=== PATIENT | female | born 1940 | race Caucasian/White ===

== ENCOUNTER 2016-12-01 14:33 | Observation (INO) ==
--- NOTE | 2016-12-01 16:07 | Emergency Department Note ---
START Narrative - START START: I examined this patient and my medical decision-making was reviewed with the DIRECTOR OF FIELD COORDINATION/PA/Advanced Practice Nurse/Resident Physician. I agree with the documented findings, disposition and treatment plan as described except to the extent set forth below. The patient does have dizziness which is a lightheadedness sensation and the dizziness is worse when she stands up. She also does have a ache sensation in her head. No head trauma. She denies any localized numbness or weakness of the extremities, slurred speech, facial droop or confusion. Patient does have testing pending including troponin because her EKG does show new T-wave inversion laterally in leads 1 and aVL concerning for ischemia. The patient will be admitted. I did inquire about alcohol and she does drink 2-3 drinks per day which are doubles whiskey and 7-Up. This can be further evaluated as an inpatient. [id number] I did speak with the hospitalist who accepts the patient for admission. She does request a head CT and that test is ordered. [id number]
[2016-12-01 16:17] LABS: Bilirubin,Urine Negative (Negative); Blood,Urine Negative (Negative); Clarity,Urine Clear (Clear); Color,Urine Yellow (Yellow); Glucose,Urine (UA) Normal (Normal); Ketones,Urine 15 mg/dL (Negative); Leukocyte Esterase,Urine Trace (Negative); Nitrite,Urine Negative (Negative); PH,Urine 6.5 pH Units (5.0-8.0); Protein,Urine Negative (Neg-Trace); Specific Gravity,Urine 1.014 (1.010-1.025); Urobilinogen,Urine Normal (Normal)
[2016-12-01 16:20] LABS: Bacteria,Urine None Seen per hpf (None-Few); Hyaline Casts,Urine None Seen per lpf (None-Few); RBC,Urine 0-3 per hpf (0-3); Squamous Epithelial Cell,Urine Moderate per lpf (None-Few)
[2016-12-01 16:23] LABS: Basophils % 0.7 %; Eosinophils # 0.2 K/mcL (0.0-0.6); Eosinophils % 2.7 %; Hematocrit 43.6 % (35.3-44.9); Hemoglobin 14.5 g/dL (11.5-15.4); Immature Granulocytes % 0.3 % (0-4); Lymphocytes # 1.1 K/mcL (0.6-4.6); Lymphocytes % 17.6 %; Mean Corpuscular HGB Conc 33.3 g/dL (31.6-35.5); Mean Corpuscular Hemoglobin 31.5 pg (28.0-33.3); Mean Corpuscular Volume 94.8 fL (83.0-100.0); Mean Platelet Volume 9.2 fL (9.4-12.4); Monocytes # 0.6 K/mcL (0.0-1.3); Monocytes % 10.1 %; Neutrophils # 4.1 K/mcL (1.6-8.9); Platelet Count 237 K/mcL (140-400); Red Cell Distribution Width 12.3 % (11.5-14.5); Segmented Neutrophils % 68.6 %
[2016-12-01 16:38] LABS: Alanine Aminotransferase 22 Units/L (0-55); Albumin 4.2 g/dL (3.5-5.0); Alkaline Phosphatase 101 Units/L (38-126); Aspartate Amino Transferase 33 Units/L (5-34); BUN/Creatinine Ratio 11 (6-26); Bilirubin,Total 0.7 mg/dL (0.2-1.2); Blood Urea Nitrogen 9 mg/dL (7-20); Calcium 10.1 mg/dL (8.6-10.8); Carbon Dioxide 23 mEq/L (19-29); Chloride 96 mEq/L (98-109); Ethanol < 10 mg/dL (0-10); Globulin 4.2 g/dL (2.4-3.5); Glucose 88 mg/dL (70-99); Osmolality,Calculated 270 (280-300); Potassium 4.7 mEq/L (3.5-4.5); Sodium 131 mEq/L (136-145); Total Protein 8.4 g/dL (6.0-8.3); eGFR For African Americans > 60 (> 60); eGFR For Non-African Americans > 60 (> 60)
[2016-12-01] MEDS ORDERED: 0.9 % Sodium Chloride 500 ML IVC ONE (16:55)
[2016-12-01] MEDS ORDERED: Acetaminophen 325 MG TABLET PO PRN (18:37)
[2016-12-01] MEDS ORDERED: Naloxone 0.4 MG/ML INJ IVP PRN (18:37)
--- NOTE | 2016-12-01 18:53 | Internal Med History&Physical ---
<Mayra Muller - Last Filed: 12/01/16 22:30> Date of Encounter: 12/01/16 Time of Encounter: 18:53 Assessment and Plan (1) Dizziness Current visit: Yes Status: Acute 1 patient had sudden onset of lightheadedness and dizziness today also word searching. No past history of stroke or seizure activity. Denies any numbness or tingling or slurred speech. At this time. Symptoms have resolved. CT of head was negative for any intracranial abnormalities. We will obtain an MRI continue with her checks 2 obtain cardiac echo 3 continuous cardiac monitoring 4. fall Precautions 5 aspirin and statin will check lipid profile 6 carotid Dopplers 7 neuro checks (2) Hyponatremia Current visit: Yes Status: Acute 1 presently sodium is 131. this appears to be chronic with likely related to her alcoholism. She was recently 137 earlier this month however she has been down to 134-132 previously. 2 we will continue with salt tabs 3 monitor intake and output (3) ETOH abuse Current visit: Yes Status: Acute 1 patient does admit to consuming both whiskey and vodka on a daily basis. She states her last drink was 2 days ago. No signs or symptoms of withdrawal at this time. We will start CIWA , we will give banana bag tonight (4) DVT prophylaxis Current visit: Yes Status: Acute [facility] Internal Medicine - H&P: HPI Chief complaint: Dizziness Admitted From: Emergency Dept Plans for Post Hospital Care: Home History of present illness: Ms. 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 According to the patient she has been experiencing light headedness/dizziness which started this afternoon. She denies any vertigo nausea visual changes headaches. She states that dizziness/lightheadedness is worse with position changes. She also noted that this afternoon she was having difficulty recalling words. She denies any slurred speech numbness tingling facial droop or weakness. She also denies any chest pain shortness of breath or abdominal pain. Patient does admit to drinking alcohol. She drinks approximately 2-3 drinks per day double whiskey 7- Up,or vodka and Snapple. Her last drink was on Monday. Denies any tremors falls or seizure activity She presented to the ER with the above complaints. ER lab work revealed some hyponatremia with sodium 131 potassium was 4.7. Troponin was 0.01. Alcohol was less than [address] of head was obtained which was negative for any acute intracranial abnormalities. EKG according to ER concerning for lateral ischemia. Patient was admitted for further workup and evaluation. Presently patient denies any chest pain or shortness of breath. She is alert appropriate following simple commands male nurse 2 through 12 are intact there are no focal deficits equal strength in all 4 extremities. She denies any lightheadedness or dizziness at this time. Lung sounds are clear heart sounds are regular S1 and S2 with no murmurs clicks counts were as noted abdomen soft nontender no pedal edema noted. She essentially normal monitor. She is human unstable with time. I reviewed this case with Dr. Barriga who agrees with plan. Past Med Surg Social Fam HX - Past Medical History Medical history: arthritis, hyperlipidemia, hypertension, malignancy, syncope Psychiatric history: anxiety, depression - Social History Smoking Status: Never smoker Smokeless Tobacco Status: No Alcohol use: occasionally Drug use: none - Family History Father History Unknown: Yes Family Member Ethnicity: Non- Living Status: Age at : 50 Cause of : heart attack Hx Family Cardiac Disorders: Yes Mother Family Member Ethnicity: Non- Living Status: Age at : 91 Cause of : dementia related complications Hx Family Cancer: Yes Hx Family Neurologic Disorders: Yes (dementia) Internal Medicine - H&P: Meds Aspirin [Adult Low Dose Aspirin EC] 81 mg PO DAILY 05/14/15 [History] Loratadine [Claritin] 10 mg PO DAILY 05/14/15 [History] Losartan Potassium [Cozaar] 100 mg PO DAILY 05/14/15 [History] Montelukast [Singulair] 10 mg PO DAILY 05/14/15 [History] Simvastatin [Zocor] 20 mg PO HS 05/14/15 [History] Sodium Chloride 1 gm PO BID 05/14/15 [History] Spironolactone [Aldactone] 25 mg PO DAILY 05/14/15 [History] l Gasseri/B Bifidum/B Longum [[employer] Capsule] 1 each PO DAILY [History] Fluticasone Propionate Nasal [Flonase] 50 mcg NS DAILY #1 bottle 08/21/15 [Rx] Pentoxifylline [TRENtal] 400 mg PO BID #60 tablet.er 10/17/16 [Rx] Cyanocobalamin (Vitamin B-12) [Vitamin B-12] 1,000 mcg SL Q2W 11/18/16 [History] Escitalopram [Lexapro] 10 mg PO DAILY 11/18/16 [History] Ascorbic Acid [Vitamin C] 500 mg PO Q48H 12/01/16 [History] Carboxymethylcell/Hypromellose [Genteal Gel Drops] 2 drop OP Q6H PRN 12/01/16 [ History] Metoprolol XL (24 HR) Succ [Toprol XL] 50 mg PO DAILY 12/01/16 [History] Prevagen 1 tab PO DAILY 12/01/16 [History] 3 Allergy/AdvReac Type Severity Reaction Status Date / Time enalapril Allergy Cough Verified 12/01/16 14:41 codeine AdvReac See Verified 12/01/16 14:41 Comments All Systems PM: A 10-system review of systems was performed and is negative for pertinent findings except as documented above in the HPI. - Constitutional Constitutional: no chills, no fever(s), no night sweats - EENT Eyes: no change in vision, no discharge, no pain, no photophobia Nose, mouth and throat: no dysphagia, no nasal discharge, no neck pain, no sore throat - Cardiovascular Cardiovascular ROS IM: lightheadedness, no chest pain, no diaphoresis, no dyspnea, no palpitations, no syncope - Respiratory Respiratory: no cough, no dyspnea, no wheezing, no excessive phlegm production - Gastrointestinal Gastrointestinal: no abdominal pain, no diarrhea, no hematemesis, no hematochezia, no melena, no nausea, no vomiting - Genitourinary Genitourinary: no change in urinary stream, no dysuria, no flank pain, no hematuria - Musculoskeletal Musculoskeletal ROS IM: no numbness, no tingling - Integumentary Integumentary IM: no rash, no unusual bruising - Neurological Neurological ROS: no confusion, no convulsions, no focal weakness, no numbness, no tingling, no tremor(s) - Hematologic/Lymphatic Hematologic/Lymphatic: no easy bruising - Constitutional Vitals: Temp Pulse Resp BP Pulse Ox 97.9 F 67 17 173/87 98 12/01/16 14:41 12/01/16 17:00 12/01/16 18:04 12/01/16 18:04 12/01/16 17:00 General appearance: Present: A&O X 3, answers questions appropriately - Head Head exam: Present: atraumatic, normocephalic - Eye Eye exam: Present: PERRL, conjuntiva pink, sclera anicteric Pupils: Present: PERRL - Neck Neck exam general surgery: Present: supple, trachea midline. Absent: lymphadenopathy - Respiratory Respiratory exam: Present: CTAB. Absent: accessory muscle use, rales, rhonchi, wheezes - Cardiovascular Cardiovascular exam: Present: RRR, +S1, +S2. Absent: diastolic murmur, gallop, rubs, systolic murmur - GI/Abdominal GI/Abdominal exam: Present: normal bowel sounds, soft, no peritoneal signs. Absent: distended, tenderness - Extremities Exam Extremities exam: Present: warm, radial pulses palpable and symmetrical. Absent : calf tenderness, cyanotic, pedal edema - Neurological Exam Neurological exam: Present: CN II-XII intact, oriented X3, no focal deficits. Absent: pronater drift, facial droop, speech deficit - Skin Skin exam: Present: dry, intact Internal Med - H&P Results - Labs CBC & Chem 7: 12/01/16 16:17 12/01/16 16:17 - EKG Data EKG shows normal: sinus rhythm Rate: normal - EKG Data Prior EKG available for review: yes When compared to previous EKG: there is no significant change EKG comments: 12/01/16 22:21 IV the EKG with Dr. Barriga <S[place] San - Last Filed: 12/02/16 00:55> Date of Encounter: 12/02/16 Internal Medicine - H&P: HPI History of present illness: Ms. Ridley is a 76 year old female All Systems PM: A 10-system review of systems was performed and is negative for pertinent findings except as documented above in the HPI. - Constitutional Vitals: Temp Pulse Resp BP Pulse Ox 98.4 F 56 18 136/79 96 12/01/16 22:46 12/01/16 22:46 12/01/16 22:46 12/01/16 22:46 12/01/16 22:46 Internal Med - H&P Results - Labs CBC & Chem 7: 12/01/16 16:17 12/01/16 16:17 Labs: Cardiac Enzymes 12/01/16 Range/Units 22:01 Troponin I 0.00 (0-0.03) ng/mL - Impressions ITS Impressions Brain MRI 12/01/16 20:26 IMPRESSION: Volume loss with chronic white matter microvascular ischemic changes. D/ / Foster Flores MD / Foster Flores MD Interpreting Provider: Foster Flores MD - Attending Attestation I examined this patient and my medical decision-making was reviewed with the MEAT STUFFER. I agree with the documented findings, disposition and treatment plan as described except to the extent set forth below. Patient is a 76-year-old female with past medical history of hyperlipidemia, hypertension, anxiety, depression, squamous cell carcinoma of right inguinal lymph node, chronic hyponatremia, MARY, arthritis and history of alcohol abuse. Patient presents to the ED with complaints of dizziness and lightheadedness. Symptoms are worse with position changes. There is some concern earlier today about patient having some dysarthria. Patient denies slurred speech or numbness or tingling. She denies facial droop or focal weakness. She denies chest pain or shortness of breath or palpitations. Patient states she drinks 2- 3 drinks daily and her last drink was about 2 days ago. She does complain of frequent falls. Initial workup in the ED is negative. She has no other acute complaints at this time. Patient will need workup for stroke. Heart rate 56, blood pressure 136/79, O2 sat 96% on room air. Heart S1-S2 positive. Lungs bilateral good air entry no wheeze or crackle. Abdomen soft nontender. Extremities all pulses strong regular no edema. Neurological patient is awake and alert, Not in any distress, cranial nerves intact, no obvious focal neurological deficits.
--- NOTE | 2016-12-01 19:18 | Emergency Department Note ---
Disposition Clinical Impression: Dizziness, ECG abnormality, Hyponatremia Disposition: Admitted As Inpatient Condition: Fair General Adult HPI - General Chief complaint: ED Dizziness Stated complaint: Dizzy Time Seen by Provider: 12/01/16 15:18 Source: patient Limitations: no limitations Nursing Notes Reviewed: Yes Vital Signs Reviewed: Yes - History of Present Illness HPI Narrative: The patient does have dizziness which is a lightheadedness sensation and the dizziness & is worse when she stands up. She also does have a ache sensation in her head. No head trauma. She denies any localized numbness or weakness of the extremities, slurred speech, facial droop or confusion. No chest pain or shortness of breath or sweating. She has had the dizziness in the past. She specifically denies any vertigo. Social history: Drinks between 4 and 6 alcoholic shots per day which are generally whiskey and 7-Up Pain Scale: 0 - Related Data Home Medications Medication Instructions Recorded Confirmed Aspirin [Adult Low Dose Aspirin EC] 81 mg PO DAILY 05/14/15 12/01/16 Loratadine [Claritin] 10 mg PO DAILY 05/14/15 12/01/16 Losartan Potassium [Cozaar] 100 mg PO DAILY 05/14/15 12/01/16 Montelukast [Singulair] 10 mg PO DAILY 05/14/15 12/01/16 Simvastatin [Zocor] 20 mg PO HS 05/14/15 12/01/16 Sodium Chloride 1 gm PO BID 05/14/15 12/01/16 Spironolactone [Aldactone] 25 mg PO DAILY 05/14/15 12/01/16 l Gasseri/B Bifidum/B Longum 1 each PO DAILY 05/14/15 12/01/16 [Beyond Verbal Health Capsule] Cyanocobalamin (Vitamin B-12) 1,000 mcg SL Q2W 11/18/16 12/01/16 [Vitamin B-12] Escitalopram [Lexapro] 10 mg PO DAILY 11/18/16 12/01/16 Ascorbic Acid [Vitamin C] 500 mg PO Q48H 12/01/16 12/01/16 Carboxymethylcell/Hypromellose 2 drop OP Q6H PRN 12/01/16 12/01/16 [Genteal Gel Drops] Metoprolol XL (24 HR) Succ [Toprol 50 mg PO DAILY 12/01/16 12/01/16 XL] Prevagen 1 tab PO DAILY 12/01/16 12/01/16 Previous Rx's Medication Instructions Recorded Fluticasone Propionate Nasal 50 mcg NS DAILY #1 bottle 08/21/15 [Flonase] Pentoxifylline [TRENtal] 400 mg PO BID #60 tablet.er 10/17/16 Allergies Allergy/AdvReac Type Severity Reaction Status Date / Time enalapril Allergy Cough Verified 12/01/16 14:41 codeine AdvReac See Verified 12/01/16 14:41 Comments Review of Systems: No chest pain or shortness of breath or sweating Past Medical History - Past Medical History Medical history: Reports: arthritis, hyperlipidemia, hypertension, malignancy, syncope Psychiatric history: Reports: anxiety, depression 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 EYES: PERRL, EOMI, no scleral icterus NOSE: The nose is normal in appearance without rhinorrhea NECK: Supple without rigidity, no JACKIE RESP: Normal chest excursion with respiration; breath sounds clear and equal bilaterally; no wheezes, rhonchi, or rales CARD: Regular rhythm, without murmurs, rub or gallop ABD: Non-distended; non-tender, soft, without rigidity, rebound or guarding SKIN: Normal for age and race; warm and dry; no apparent lesions, no rash NEUROLOGICAL: Patient is alert and oriented times three. Cranial nerves III- XII are intact. Sensory and motor functions are intact. Strength is 5/5 for flexion and extension in all 4 extremities. Finger to nose testing is equal and normal bilaterally. - General Limitations: no limitations General appearance: alert Course Vital Signs Temperature 97.9 F 12/01/16 14:41 Pulse Rate 72 12/01/16 14:41 Respiratory Rate 20 12/01/16 14:41 Blood Pressure 163/78 12/01/16 14:41 O2 Sat by Pulse Oximetry 97 12/01/16 14:41 Temperature 98.3 F 12/01/16 19:08 Pulse Rate 72 12/01/16 19:08 Respiratory Rate 14 12/01/16 19:08 Blood Pressure 164/71 12/01/16 19:08 O2 Sat by Pulse Oximetry 97 12/01/16 19:08 Oxygen Delivery Oxygen Delivery Room Air Medical Decision Making - MDM Narrative Medical decision making narrative: Patient does have testing pending including troponin because her EKG does show new T-wave inversion laterally in leads 1 and aVL concerning for ischemia. The patient will be admitted. I did inquire about alcohol and she does drink 2-3 drinks per day which are doubles whiskey and 7-Up. This can be further evaluated as an inpatient. The patient does have concerning new EKG changes and that she does not have any chest pain is EKG changes concerning for lateral ischemia are new compared to previous EKG the patient will be admitted to the hospital. I did speak to the hospitalist accepts her for admission. Hospitalist does recommend getting a head CT and I did write for that test and did review the results came back negative. Patient has not had any head trauma. Does not use anticoagulation. - Lab Data Result diagrams: 12/01/16 16:17 12/01/16 16:17 Lab Results 12/01/16 12/01/16 12/01/16 Range/Units 16:03 16:17 16:17 WBC 6.0 (4.3-11.1) K/mcL RBC 4.60 (3.82-4.97) M/mcL Hgb 14.5 (11.5-15.4) g/dL Hct 43.6 (35.3-44.9) % MCV 94.8 (83.0-100.0) fL MCH 31.5 (28.0-33.3) pg MCHC 33.3 (31.6-35.5) g/dL RDW 12.3 (11.5-14.5) % Plt Count 237 (140-400) K/mcL MPV 9.2 L (9.4-12.4) fL Immature Gran % 0.3 (0-4) % Seg Neutrophils % 68.6 % Lymphocytes % 17.6 % Monocytes % 10.1 % Eosinophils % 2.7 % Basophils % 0.7 % Neutrophils # 4.1 (1.6-8.9) K/mcL Lymphocytes # 1.1 (0.6-4.6) K/mcL Monocytes # 0.6 (0.0-1.3) K/mcL Eosinophils # 0.2 (0.0-0.6) K/mcL Basophils # 0.0 (0.0-0.2) K/mcL Sodium 131 L (136-145) mEq/L Potassium 4.7 H (3.5-4.5) mEq/L Chloride 96 L (98-109) mEq/L Carbon Dioxide 23 (19-29) mEq/L BUN 9 (7-20) mg/dL Creatinine 0.82 (0.57-1.11) mg/dL Est GFR ( Amer) > 60 (> 60) Est GFR (Non-Af Amer) > 60 (> 60) BUN/Creatinine Ratio 11 (6-26) Glucose 88 (70-99) mg/dL Calculated Osmolality 270 L (280-300) Calcium 10.1 (8.6-10.8) mg/dL Total Bilirubin 0.7 (0.2-1.2) mg/dL AST 33 (5-34) Units/L ALT 22 (0-55) Units/L Alkaline Phosphatase 101 (38-126) Units/L Troponin I (0-0.03) ng/mL Serum Total Protein 8.4 H (6.0-8.3) g/dL Albumin 4.2 (3.5-5.0) g/dL Globulin 4.2 H (2.4-3.5) g/dL Albumin/Globulin Ratio 1.0 L (1.1-2.2) Urine Color Yellow (Yellow) Urine Clarity Clear (Clear) Urine pH 6.5 (5.0-8.0) pH Units Ur Specific [place] 1.014 (1.010-1.025) Urine Protein Negative (Neg-Trace) mg/dL Urine Glucose (UA) Normal (Normal) mg/dL Urine Ketones 15 H (Negative) mg/dL Urine Blood Negative (Negative) Urine Nitrite Negative (Negative) Urine Bilirubin Negative (Negative) Urine Urobilinogen Normal (Normal) mg/dL Ur Leukocyte Esterase Trace H (Negative) Urine Microscopic RBC 0-3 (0-3) per hpf Urine Microscopic WBC 5-15 H (0-3) per hpf Ur Squamous Epith Cells Moderate H (None-Few) per lpf Urine Bacteria None Seen (None-Few) per hpf Hyaline Casts None Seen (None-Few) per lpf Ur Culture Indicated? YES A (NO) Ethyl Alcohol < 10 (0-10) mg/dL 12/01/16 Range/Units 16:17 WBC (4.3-11.1) K/mcL RBC (3.82-4.97) M/mcL Hgb (11.5-15.4) g/dL Hct (35.3-44.9) % MCV (83.0-100.0) fL MCH (28.0-33.3) pg MCHC (31.6-35.5) g/dL RDW (11.5-14.5) % Plt Count (140-400) K/mcL MPV (9.4-12.4) fL Immature Gran % (0-4) % Seg Neutrophils % % Lymphocytes % % Monocytes % % Eosinophils % % Basophils % % Neutrophils # (1.6-8.9) K/mcL Lymphocytes # (0.6-4.6) K/mcL Monocytes # (0.0-1.3) K/mcL Eosinophils # (0.0-0.6) K/mcL Basophils # (0.0-0.2) K/mcL Sodium (136-145) mEq/L Potassium (3.5-4.5) mEq/L Chloride (98-109) mEq/L Carbon Dioxide (19-29) mEq/L BUN (7-20) mg/dL Creatinine (0.57-1.11) mg/dL Est GFR ( Amer) (> 60) Est GFR (Non-Af Amer) (> 60) BUN/Creatinine Ratio (6-26) Glucose (70-99) mg/dL Calculated Osmolality (280-300) Calcium (8.6-10.8) mg/dL Total Bilirubin (0.2-1.2) mg/dL AST (5-34) Units/L ALT (0-55) Units/L Alkaline Phosphatase (38-126) Units/L Troponin I 0.01 (0-0.03) ng/mL Serum Total Protein (6.0-8.3) g/dL Albumin (3.5-5.0) g/dL Globulin (2.4-3.5) g/dL Albumin/Globulin Ratio (1.1-2.2) Urine Color (Yellow) Urine Clarity (Clear) Urine pH (5.0-8.0) pH Units Ur Specific [place] (1.010-1.025) Urine Protein (Neg-Trace) mg/dL Urine Glucose (UA) (Normal) mg/dL Urine Ketones (Negative) mg/dL Urine Blood (Negative) Urine Nitrite (Negative) Urine Bilirubin (Negative) Urine Urobilinogen (Normal) mg/dL Ur Leukocyte Esterase (Negative) Urine Microscopic RBC (0-3) per hpf Urine Microscopic WBC (0-3) per hpf Ur Squamous Epith Cells (None-Few) per lpf Urine Bacteria (None-Few) per hpf Hyaline Casts (None-Few) per lpf Ur Culture Indicated? (NO) Ethyl Alcohol (0-10) mg/dL
[2016-12-01] MEDS ORDERED: *HR* LORazepam 2 MG/ML VIAL IVP PRN ×3 (20:29)
[2016-12-01] MEDS: Aspirin 325 MG TABLET PO SCH (23:14)
[2016-12-02 04:34] LABS: Basophils % 0.9 %; Eosinophils # 0.1 K/mcL (0.0-0.6); Eosinophils % 3.3 %; Hematocrit 36.1 % (35.3-44.9); Immature Granulocytes % 0.2 % (0-4); Lymphocytes % 22.4 %; Mean Corpuscular HGB Conc 34.9 g/dL (31.6-35.5); Mean Corpuscular Volume 94.5 fL (83.0-100.0); Mean Platelet Volume 9.5 fL (9.4-12.4); Monocytes # 0.6 K/mcL (0.0-1.3); Monocytes % 14.7 %; Neutrophils # 2.5 K/mcL (1.6-8.9); Platelet Count 187 K/mcL (140-400); Red Blood Count 3.82 M/mcL (3.82-4.97); Red Cell Distribution Width 12.7 % (11.5-14.5); Segmented Neutrophils % 58.5 %
[2016-12-02 04:37] LABS: Hemoglobin 12.6 g/dL (11.5-15.4)
[2016-12-02 04:53] LABS: BUN/Creatinine Ratio 13 (6-26); Blood Urea Nitrogen 10 mg/dL (7-20); Carbon Dioxide 23 mEq/L (19-29); Chloride 102 mEq/L (98-109); Chol/HDL Ratio 2.8 (0-4.9); Cholesterol 163 mg/dL (< 200); Glucose 94 mg/dL (70-99); HDL Cholesterol 59 mg/dL (40-59); LDL Cholesterol,Calculated 90 mg/dL (0-99); Magnesium 1.7 mg/dL (1.6-2.6); Osmolality,Calculated 275 (280-300); Potassium 3.8 mEq/L (3.5-4.5); Sodium 133 mEq/L (136-145); Triglycerides 68 mg/dL (< 150); eGFR For African Americans > 60 (> 60); eGFR For Non-African Americans > 60 (> 60)
[2016-12-02] MEDS: *HR* Enoxaparin 40 MG/0.4 ML SYRINGE SQ SCH (05:47)
[2016-12-02] MEDS: Aspirin 325 MG TABLET PO SCH (09:24)
[2016-12-02] MEDS: Metoprolol XL (24 HR) Succ 50 MG TAB.ER.24H PO SCH (09:25)
[2016-12-02] MEDS: Loratadine 10 MG TABLET PO SCH (09:25)
[2016-12-02] MEDS: Aspirin Enteric Coated 81 MG Tablet PO SCH (09:26)
--- NOTE | 2016-12-02 17:57 | Carotid Imaging Report ---
Carotid Duplex Patient Name:Kalani Ridley Order Number:[id number] Procedure Date:12/02/2016 Date:1940ge:76 yrs Gender:Female Lt BP:135 / 74 mmHg Rt.BP:146 / 61 mmHgHeart Rate: Location:[facility] Room #: 3B41 Director Education:Caprice Doe RDCS, ANGIE Referring MD:Mayra Muller, JAR FILLER Reading MD:Jose Carlos Mahajan MD , FACS Primary Indications:Lightheadedness Risk Factors Yes/No Hypertension Yes Diabetes No Hypercholesterolemia Yes Hx of TIA No Hx of CVA No Impressions: Findings: Bilateral carotid systems essentially normal. Recommendations: After imaging the patient returned to their room. Test completed on 12/02/2016 at 9:14:31 am. Critical findings reported to Note in EMR note in emr by Caprice Doe RDCS, ANGIE. Findings Carotid Duplex: Right: There is nonstenotic plaque in the right proximal common carotid artery. There is smooth heterogeneous plaque. There is nonstenotic plaque in the right bifurcation. There is irregular, heterogeneous calcified plaque. There is nonstenotic plaque in the right eca. There is irregular heterogeneous plaque. There is antegrade spectral Doppler flow patterns in the right vertebral artery. Left: There is antegrade spectral Doppler flow patterns in the left vertebral artery. Carotid Results Right PSV EDV Assessment Proximal CCA 74 9 Non Stenotic Plaque Mid CCA 60 12 Normal Distal CCA 63 11 Normal Bifurcation 65 12 Non Stenotic Plaque Proximal ICA 54 11 Normal Mid ICA 72 17 Normal Distal ICA 72 17 Normal ECA 52 Non Stenotic Plaque Vertebral Artery 67 8 Antegrade Flow Left PSV EDV Assessment Proximal CCA 78 12 Normal Mid CCA 61 10 Normal Distal CCA 59 12 Normal Bifurcation 47 12 Normal Proximal ICA 36 12 Normal Mid ICA 63 13 Normal Distal ICA 54 13 Normal ECA 43 Normal Vertebral Artery 72 16 Antegrade Flow Ratio's Right ICA/CCA Ratio: 1.20 ICA/CCA Values: 72/60 Left ICA/CCA Ratio: 1.03 ICA/CCA Values: 63/61 Updated by Jose Carlos Mahajan MD, FACS on 12/02/2016 5:51:59 PM Jose Carlos Mahajan MD electronically signed on 12/02/2016 5:52:22 PM with status of Final
[2016-12-02] MEDS ORDERED: Thiamine (B-1) 100 MG, Folic Acid 1 MG, MVI, adult with vitamin K 10 ML in 0.9 % Sodi... IVPB SCH (18:00)
--- NOTE | 2016-12-02 18:38 | Internal Med Progress Note ---
Date of Encounter: 12/02/16 Time of Encounter: 13:30 - Assessment and plan (1) Dizziness Current Visit: Yes Status: Acute Assessment and plan: Patient reports dizziness she will Yesterday. She reports history of near syncope yesterday and called the squad. She states that she is feeling better. Echocardiogram results are still pending. Check carotids done in June, that showed 40-59% stenosis of left ICA, right nonstenotic plaque in ICA. MRI and head CT are both negative. Orthostatics are ordered and pending. Dizziness could be multifactorial including alcohol intake, hyponatremia, and mild dehydration. We will continue to monitor patient will most likely go home in the morning. (2) Hyponatremia Current Visit: Yes Status: Acute Assessment and plan: Hyponatremia is improving. 133 today. Continue sodium supplementation and reevaluate in the morning. (3) DVT prophylaxis Current Visit: Yes Status: Acute Assessment and plan: Lovenox subcutaneous. (4) ETOH abuse Current Visit: Yes Status: Acute Assessment and plan: Per patient, she consumes both with skin vodka daily. Last drink was 2 days prior to arrival. She has no signs or symptoms of withdrawal, CIWA protocol is ordered. - Time Spent With Patient less than 15 minutes - Subjective Interval history: Patient was seen and assessed at 1330. She is sitting up in bed eating lunch, friend at bedside. Patient states that she feels better. Patient agrees to stay overnight for continued monitoring on the monitor and wait for echocardiogram results. All other testing appears to be normal. We will evaluate, patient will most likely go home in the morning. - Constitutional Vitals: Temp Pulse Resp BP Pulse Ox 98.3 F 61 16 117/74 97 12/02/16 15:36 12/02/16 15:36 12/02/16 15:36 12/02/16 15:36 12/02/16 15:36 General appearance: Present: A&O X 3, pleasant, no acute distress, answers questions appropriately - Head Head exam: Present: atraumatic, normal inspection, normocephalic - Eye Eye exam: Present: conjuntiva pink, sclera anicteric - Neck Neck exam general surgery: Present: supple, trachea midline. Absent: lymphadenopathy, tenderness - Respiratory Respiratory exam: Present: CTAB. Absent: accessory muscle use, rales, rhonchi, wheezes - Cardiovascular Cardiovascular exam: Present: RRR, +S1, +S2. Absent: diastolic murmur, gallop, rubs, systolic murmur - GI/Abdominal GI/Abdominal exam: Present: normal bowel sounds, soft, no peritoneal signs. Absent: distended, hepatomegaly, tenderness - Extremities Exam Extremities exam: Present: normal inspection, warm, radial pulses palpable and symmetrical. Absent: calf tenderness, cyanotic, pedal edema - Neurological Exam Neurological exam: Present: alert, oriented X3, no focal deficits, strengths equal and symetr throughout, pronater drift. Absent: facial droop, speech deficit - Skin Skin exam: Present: dry, intact, normal color, warm. Absent: rash Internal Medicine: Result - Labs CBC & Chem 7: 12/02/16 04:15 12/02/16 04:15 Labs: Short CBC 12/02/16 Range/Units 04:15 WBC 4.3 (4.3-11.1) K/mcL Hgb 12.6 D (11.5-15.4) g/dL Hct 36.1 (35.3-44.9) % Plt Count 187 (140-400) K/mcL Neutrophils # 2.5 (1.6-8.9) K/mcL BMP 12/02/16 04:15 Sodium 133 L Potassium 3.8 Chloride 102 Carbon Dioxide 23 BUN 10 Creatinine 0.78 Glucose 94 Calcium 9.0 Cardiac Enzymes 12/01/16 12/02/16 Range/Units 22:01 04:15 Troponin I 0.00 0.00 (0-0.03) ng/mL - Impressions Impressions Echocardiogram 12/01/16 18:51 Impressions: LVEF 60%. Normal LV chamber size and function. Asymmetric hypertrophy of the basal septum. No LVOT obstruction. Moderate left ventricular diastolic dysfunction. Normal right ventricular structure and function. No evidence of pulmonary hypertension. Left Ventricular Wall Motion: Rest Echo Findings All wall segments showed normal motion. Findings: Study Quality * Technically adequate exam. ECG Findings * Normal sinus rhythm. Left Ventricle * LVEF 60%. * Normal LV chamber size and function. * Asymmetric hypertrophy of the basal septum. * Moderate left ventricular diastolic dysfunction. Right Ventricle * Normal right ventricular structure and function. Left Atrium * Mild to moderately dilated left atrium. Right Atrium * Normal right atrial size. Interatrial Septum * Interatrial septum not well evaluated. Aortic Valve * Trileaflet aortic valve. * Trace aortic regurgitation. * No aortic stenosis. Mitral Valve * Mild mitral annular calcification, posterior. * Trace mitral regurgitation. * No mitral stenosis. Tricuspid Valve * Normal tricuspid valve structure and function. * Trace tricuspid regurgitation. * No evidence of pulmonary hypertension. Pulmonic Valve * Normal pulmonic valve structure and function. * No pulmonic regurgitation. Aorta * Normally sized aortic root. IVC * Normal IVC dimensions and inspiratory collapse. Pulmonary Artery * Normal visualized portions of the main pulmonary artery. Brain MRI 12/01/16 20:26 IMPRESSION: Volume loss with chronic white matter microvascular ischemic changes. D/ / Foster Flores MD / Foster Flores MD Interpreting Provider: Foster Flores MD Consult Discharge Plan - Plan Referrals: Shae Andrade CNP [Advanced Practice Nurse] - 12/07/16 1:00 pm Mariaelena Arevalo DO [Primary Care Provider] -
[2016-12-03 03:22] LABS: Basophils % 0.9 %; Eosinophils # 0.2 K/mcL (0.0-0.6); Eosinophils % 3.5 %; Hematocrit 36.3 % (35.3-44.9); Hemoglobin 12.1 g/dL (11.5-15.4); Immature Granulocytes % 0.2 % (0-4); Lymphocytes % 21.2 %; Mean Corpuscular HGB Conc 33.3 g/dL (31.6-35.5); Mean Corpuscular Hemoglobin 32.3 pg (28.0-33.3); Mean Corpuscular Volume 96.8 fL (83.0-100.0); Mean Platelet Volume 9.5 fL (9.4-12.4); Monocytes # 0.6 K/mcL (0.0-1.3); Monocytes % 12.4 %; Neutrophils # 2.8 K/mcL (1.6-8.9); Platelet Count 187 K/mcL (140-400); Red Blood Count 3.75 M/mcL (3.82-4.97); Segmented Neutrophils % 61.8 %
[2016-12-03 03:28] LABS: BUN/Creatinine Ratio 17 (6-26); Blood Urea Nitrogen 15 mg/dL (7-20); Calcium 8.9 mg/dL (8.6-10.8); Carbon Dioxide 24 mEq/L (19-29); Chloride 107 mEq/L (98-109); Glucose 106 mg/dL (70-99); Osmolality,Calculated 285 (280-300); Potassium 4.1 mEq/L (3.5-4.5); Sodium 137 mEq/L (136-145); eGFR For African Americans > 60 (> 60); eGFR For Non-African Americans > 60 (> 60)
[2016-12-03] MEDS: *HR* Enoxaparin 40 MG/0.4 ML SYRINGE SQ SCH (05:39)
[2016-12-03 07:20] VITALS: BP 155/80
[2016-12-03] MEDS: Aspirin 325 MG TABLET PO SCH (09:08)
--- NOTE | 2016-12-03 09:09 | Discharge Summary ---
Date of Encounter: 12/03/16 Time of Encounter: 08:50 - Discharge Diagnosis (1) Dizziness Priority: Primary Status: Resolved Comments: Patient denies dizziness since original episode at home. Chest x-ray negative, head CT with chronic changes, no acute intracranial abnormalities. Echocardiogram showed LVEF of 60% with moderate LV DD and no evidence of pulmonary hypertension. Carotids were essentially normal bilaterally. Brain MRI with volume loss and chronic ischemic changes. Appears to have been mildly dehydrated on admission, she received fluid bolus in the emergency department and denies problems since. I am encouraged patient to continue hydration at home and change position slowly. Blood pressure has been at goal and steady. She has not had any episodes of tachycardia or hypotension. Chest X-Ray 12/01/16 14:44 IMPRESSION: No acute cardiopulmonary abnormality or significant change since 08/27/2014. D/ / Antonio Lopes MD / Antonio Lopes MD Interpreting Provider: Antonio Lopes MD Head CT 12/01/16 17:06 IMPRESSION: Similar chronic ischemic and senescent changes. No CT evidence for acute intracranial abnormality. D/ / Antwon Rios / Antwon Rios Interpreting Provider: Antwon Rios Echocardiogram 12/01/16 18:51 Impressions: LVEF 60%. Normal LV chamber size and function. Asymmetric hypertrophy of the basal septum. No LVOT obstruction. Moderate left ventricular diastolic dysfunction. Normal right ventricular structure and function. No evidence of pulmonary hypertension. Brain MRI 12/01/16 20:26 IMPRESSION: Volume loss with chronic white matter microvascular ischemic changes. D/ / Foster Flores MD / Foster Flores MD Interpreting Provider: Foster Flores MD (2) Hyponatremia Priority: Secondary Status: Chronic Comments: Resolved. Sodium 137 today. (3) DVT prophylaxis Priority: Secondary Status: Acute (4) ETOH abuse Priority: Secondary Status: Chronic Comments: patient does admit to consuming both whiskey and vodka on a daily basis. No signs or symptoms of withdrawal at this time. [facility] protocol was in place, but she did not require it. - Discharge Medications Home Medications: Aspirin [Adult Low Dose Aspirin EC] 81 mg PO DAILY 05/14/15 [History] Loratadine [Claritin] 10 mg PO DAILY 05/14/15 [History] Losartan Potassium [Cozaar] 100 mg PO DAILY 05/14/15 [History] Montelukast [Singulair] 10 mg PO DAILY 05/14/15 [History] Simvastatin [Zocor] 20 mg PO HS 05/14/15 [History] Sodium Chloride 1 gm PO BID 05/14/15 [History] Spironolactone [Aldactone] 25 mg PO DAILY 05/14/15 [History] l Gasseri/B Bifidum/B Longum [[employer] Capsule] 1 each PO DAILY [History] Fluticasone Propionate Nasal [Flonase] 50 mcg NS DAILY #1 bottle 08/21/15 [Rx] Pentoxifylline [TRENtal] 400 mg PO BID #60 tablet.er 10/17/16 [Rx] Cyanocobalamin (Vitamin B-12) [Vitamin B-12] 1,000 mcg SL Q2W 11/18/16 [History] Escitalopram [Lexapro] 10 mg PO DAILY 11/18/16 [History] Ascorbic Acid [Vitamin C] 500 mg PO Q48H 12/01/16 [History] Carboxymethylcell/Hypromellose [Genteal Gel Drops] 2 drop OP Q6H PRN 12/01/16 [ History] Metoprolol XL (24 HR) Succ [Toprol Xl] 50 mg PO DAILY 12/01/16 [History] Prevagen 1 tab PO DAILY 12/01/16 [History] Allergies/Adverse Reactions: 3 Allergy/AdvReac Type Severity Reaction Status Date / Time enalapril Allergy Cough Verified 12/01/16 14:41 codeine AdvReac See Verified 12/01/16 14:41 Comments Procedures/tests Complete & Pending: Procedures Performed prior 72 hours Category Date Time Status MR head/brain wo con [MR] Routine MRI 12/01/16 20:26 Completed EV carotid duplex imaging BI Routine Y 12/02/16 09:00 Completed EV echocardiogram Routine Y 12/01/16 18:51 Completed Date of admission: 12/01/16 17:08 Primary care physician: Mariaelena Arevalo DO Consults: 12/01/16 19:02 Consult to [employer] [CONS] Routine Reason for SW Consult: reports depression with alcohol use daily Discharging clinician: Caprice Sutherland Anticipated date of discharge: 12/03/16 - Patient Status Disposition: Home, Self-Care Condition: Good Functional capacity at discharge: independent ambulation Overall status at discharge: patient is back to baseline - Discharge Instructions Follow Up With: Shae Andrade CNP [Advanced Practice Nurse] - 12/07/16 1:00 pm Mariaelena Arevalo DO [Primary Care Provider] - Forms: ED Satisfaction Letter Additional Instructions: Follow up with your PCP in the next 7-10 days for a follow up visit. Return to the ER as needed for any other problems or concerns or if your problems return or worsen. Take your medications as directed. Resume your normal activities as tolerated. - Diet and Activity Activity: increase activity as tolerated Diet: advance to your usual diet Hospital course: Ms. Ridley is a 76 year old female with past medical history of squamous cell carcinoma, chronic hyponatremia, hyperlipidemia, hypertension, and alcohol abuse. She presented to the emergency department with complaint of lightheadedness/dizziness which started immediately prior to arrival. She denies any nausea, vomiting, visual changes, headaches, shortness of breath. She reports that the dizziness/ lightheadedness was worse with position changes and noted that she was having difficulty recalling words. She denies any slurred speech, numbness, tingling, facial droop, or weakness. She also denies any chest pain, or abdominal pain. She states that she drinks approximately 2- 3 drinks per day of whiskey or vodka. Her last drink was 3 days ago. She denies any tremors, feeling of anxiety. Lab work revealed a sodium of 131, patient is chronically hyponatremic, and potassium of 4.7. Her troponins were negative, alcohol is less than 10. CT of the head was negative for any acute intracranial abnormalities, MRI was also negative for acute, however the CT and MRI both showed normal, chronic changes. Chest x-ray was negative, echocardiogram showed LVEF of 60% ,asymmetric hypertrophy of the basal septum, moderate LVDD. Carotid Dopplers were essentially normal bilaterally. On arrival, urine showed a trace of leukocyte esterase, no bacteria, culture was indicated, and when completed there were no pathogens isolated. Hyponatremia has been corrected, sodium is 137. Patient takes sodium chloride tablets at home, will continue after discharge. She denies any dizziness today or since the initial incident. Unclear etiology of the dizziness other than potential mild dehydration that has since corrected. She denies headache, blurred vision, neck pain or tenderness, chest pain or shortness of breath, abdominal pain, nausea, vomiting, diarrhea. Physical exam is unremarkable. Her vital signs are stable, blood pressure is at goal, orthostatics were negative. She is not requiring supplemental oxygen to maintain sats greater than 92%. I have made no medication changes. Patient is stable and appropriate for discharge - Time Spent with Patient Total time spent providing and/or coordinating discharge services: Less than 30 minutes - Constitutional Vitals: Temp Pulse Resp BP Pulse Ox 97.7 F 61 15 155/80 98 12/03/16 07:18 12/03/16 07:18 12/03/16 07:18 12/03/16 07:18 12/03/16 07:18 General appearance: Present: A&O X 3, pleasant, no acute distress, answers questions appropriately - Head Head exam: Present: atraumatic, normal inspection, normocephalic - Eye Eye exam: Present: normal appearance, conjuntiva pink, sclera anicteric - Neck Neck exam general surgery: Present: supple, trachea midline. Absent: lymphadenopathy, tenderness - Respiratory Respiratory exam: Present: CTAB. Absent: accessory muscle use, decreased breath sounds, rales, respiratory distress, rhonchi, wheezes - Cardiovascular Cardiovascular exam: Present: RRR, +S1, +S2. Absent: diastolic murmur, gallop, rubs, systolic murmur - GI/Abdominal GI/Abdominal exam: Present: normal bowel sounds, soft, no peritoneal signs. Absent: distended, hepatomegaly, tenderness - Extremities Exam Extremities exam: Present: normal inspection, warm, radial pulses palpable and symmetrical. Absent: calf tenderness, cyanotic, pedal edema, tenderness - Neurological Exam Neurological exam: Present: alert, oriented X3, no focal deficits. Absent: facial droop, speech deficit - Skin Skin exam: Present: dry, intact, normal color, warm. Absent: rash
[2016-12-03] MEDS: Loratadine 10 MG TABLET PO SCH (09:17)
[2016-12-03] MEDS: Aspirin Enteric Coated 81 MG Tablet PO SCH (09:18)
[2016-12-03] MEDS: Metoprolol XL (24 HR) Succ 50 MG TAB.ER.24H PO SCH (09:18)
--- NOTE | 2016-12-04 07:25 | Electrocardiograph Report ---
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
== END 2016-12-03 11:20 | disposition home or self-care (01) ==
LOC: 3BNU 14:33 → EMEROO 14:33 → 3BNU 17:58
PROVIDERS: ADMIT Internal Medicine; ATTEND Registered Nurse

== ENCOUNTER 2018-02-20 13:46 | Inpatient (IN) ==
[2018-02-20] MEDS ORDERED: 0.9 % Sodium Chloride 1,000 ML IVC ONE (13:52)
--- NOTE | 2018-02-20 14:01 | Emergency Department Note ---
Disposition Clinical Impression: New onset atrial fibrillation Chest pain Qualifiers: Chest pain type: unspecified Qualified Code(s): R07.9 - Chest pain, unspecified Disposition: Admitted As Inpatient Condition: Fair Time of Disposition: 16:27 Chest Pain HPI - General Chief Complaint: ED Chest Pain Stated Complaint: CP Time Seen by Provider: 02/20/18 13:51 Source: patient, EMS Limitations: no limitations - History of Present Illness HPI Narrative: Patient presents to the ED with the chief complaint of chest pain. Started this morning when she woke up. Describes it more as a fluttering or palpitation type feeling. Also has some tightness and heaviness but it is across her entire chest wall. Does make her short of breath at times. No fever or chills. Denying any abdominal pain, nausea, vomiting or diarrhea. No rashes or pain or swelling in her legs. States she is otherwise healthy and does not have any medical problems. However, after independent medical record review. 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 Unclear of timing. She is also on a baby aspirin. She is also on spironolactone. Severity scale (1-10): 5 - Related Data Home Medications Medication Instructions Recorded Confirmed Aspirin [Adult Low Dose Aspirin EC] 81 mg PO DAILY 05/14/15 02/01/18 Loratadine [Claritin] 10 mg PO DAILY 05/14/15 02/01/18 Losartan Potassium [Cozaar] 100 mg PO DAILY 05/14/15 02/01/18 Montelukast [Singulair] 10 mg PO DAILY 05/14/15 02/01/18 Simvastatin [Zocor] 20 mg PO HS 05/14/15 02/01/18 Sodium Chloride [Sodium Chloride 1 gm PO BID 05/14/15 02/01/18 Tab] Spironolactone [Aldactone] 25 mg PO DAILY 05/14/15 02/01/18 l Gasseri/B Bifidum/B Longum 1 each PO DAILY 05/14/15 02/01/18 [[employer] Health Capsule] Cyanocobalamin (Vitamin B-12) 1,000 mcg SL Q2W 11/18/16 02/01/18 [Vitamin B-12] Escitalopram [Lexapro] 10 mg PO DAILY 11/18/16 02/01/18 Carboxymethylcell/Hypromellose 2 drop OP Q6H PRN 12/01/16 02/01/18 [Genteal Gel Drops] Metoprolol XL (24 HR) Succ [Toprol 50 mg PO DAILY 12/01/16 02/01/18 Xl] Previous Rx's Medication Instructions Recorded Fluticasone Propionate Nasal 50 mcg NS DAILY #1 bottle 08/21/15 [Flonase] Pentoxifylline [TRENtal] 400 mg PO BID #60 tablet.er 01/22/18 Allergies Allergy/AdvReac Type Severity Reaction Status Date / Time enalapril Allergy Cough Verified 02/20/18 13:54 codeine AdvReac See Verified 02/20/18 13:54 Comments Review of Systems: As reviewed in the HPI. All other systems reviewed are negative or normal. All systems ED: reviewed and negative except as stated. Chest Pain PMH - Past Medical History Medical history: Reports: arthritis, COPD, hyperlipidemia, hypertension, malignancy, syncope Psychiatric history: Reports: anxiety, depression [employer]OR [employer] history: Reports: no [employer]OR [employer] history - Social History Smoking Status: Never smoker Alcohol use: Reports: occasionally Drug use: Reports: none Physical Exam CONSTITUTIONAL: [well appearing, alert and in no acute distress] EYES: [EOMI, clear conjunctiva, PERRLA] HENT: [Normocephalic, atraumatic, moist mucus membranes, normal oropharynx] NECK: [normal inspection, full ROM, trachea midline, no obvious swelling] PULMONARY: [normal lung sounds bilaterally, normal chest rise and fall, no respiratory distress or stridor, no wheezes, no rales, no rhonchi CARDIOVASCULAR: [A. fib with RVR, normal heart sounds, no murmurs, distal extremities are warm and well perfused] GASTROINSTESTINAL: [soft, non-tender, non-rigid, non-distended, no guarding, no rebound, normal bowel sounds] GENITOURINARY/RECTAL: [deferred] NEUROLOGIC: [Alert, oriented x3, normal speech, moves all extremities] EXTREMITIES: [Normal inspection, full ROM, no tenderness, no pedal edema, normal capillary refill] MUSCULOSKELETAL: [no gross deformities, atraumatic] SKIN: [No cyanosis, no diaphoresis, normal color, warm, no rash] PSYCHIATRIC: [normal mood and affect] - General Limitations: no limitations General appearance: alert, in no apparent distress Course - Reevaluation(s) Reevaluation #1: Patient presenting with new onset A. fib with RVR. Is now rate controlled, but has not converted. 10 mg bolus of diltiazem and on a low-dose drip. We will admit to the hospital service for further workup Vital Signs Temperature 99.0 F 02/20/18 13:50 Pulse Rate 133 02/20/18 13:50 Respiratory Rate 14 02/20/18 13:50 Blood Pressure 153/90 02/20/18 13:50 O2 Sat by Pulse Oximetry 99 02/20/18 13:50 Temperature 99.0 F 02/20/18 13:50 Pulse Rate 79 02/20/18 16:06 Respiratory Rate 18 02/20/18 16:06 Blood Pressure 142/66 02/20/18 16:06 O2 Sat by Pulse Oximetry 98 02/20/18 16:06 Oxygen Delivery Oxygen Delivery Room Air Chest Pain - Medical Records Medical records reviewed: Yes I reviewed the patient's medical records. - Lab Data Lab results reviewed: Yes I reviewed the patient's lab results. Result diagrams: 02/20/18 14:25 02/20/18 14:25 Lab Results 02/20/18 02/20/18 02/20/18 Range/Units 14:25 14:25 14:25 WBC 5.3 (4.3-11.1) K/mcL RBC 4.24 (3.82-4.97) M/mcL Hgb 13.3 (11.5-15.4) g/dL Hct 40.1 (35.3-44.9) % MCV 94.6 (83.0-100.0) fL MCH 31.4 (28.0-33.3) pg MCHC 33.2 (31.6-35.5) g/dL RDW 13.4 (11.5-14.5) % Plt Count 197 (140-400) K/mcL MPV 9.7 (9.4-12.4) fL Immature Gran % 0.4 (0-4) % Seg Neutrophils % 74.8 % Lymphocytes % 12.5 % Monocytes % 9.8 % Eosinophils % 1.7 % Basophils % 0.8 % Neutrophils # 4.0 (1.6-8.9) K/mcL Lymphocytes # 0.7 (0.6-4.6) K/mcL Monocytes # 0.5 (0.0-1.3) K/mcL Eosinophils # 0.1 (0.0-0.6) K/mcL Basophils # 0.0 (0.0-0.2) K/mcL PT 11.4 (9.4-12.1) Seconds INR 1.0 APTT 28.1 (26.0-36.0) Seconds Sodium 132 L (136-145) mEq/L Potassium 4.1 (3.5-5.1) mEq/L Chloride 100 (98-107) mEq/L Carbon Dioxide 26 (23-29) mEq/L BUN 8 (8-23) mg/dL Creatinine 0.82 (0.60-1.20) mg/dL Est GFR ( Amer) > 60 (> 60) Est GFR (Non-Af Amer) > 60 (> 60) BUN/Creatinine Ratio 10 (6-26) Glucose 147 H (70-105) mg/dL Calculated Osmolality 275 L (280-300) Calcium 8.9 (8.6-10.3) mg/dL Magnesium 1.6 (1.6-2.6) mg/dL Troponin I < 0.03 (< 0.04) ng/mL TSH 2.274 (0.340-5.600) mcIU/mL Urine Nitrite (Negative) Urine Urobilinogen (Normal) mg/dL Ur Leukocyte Esterase (Negative) Urine Microscopic RBC (0-3) per hpf Urine Microscopic WBC (0-3) per hpf Ur Squamous Epith Cells (None-Few) per lpf Urine Bacteria (None-Few) per hpf Hyaline Casts (None-Few) per lpf Ur Culture Indicated? (NO) 02/20/18 Range/Units 14:52 WBC (4.3-11.1) K/mcL RBC (3.82-4.97) M/mcL Hgb (11.5-15.4) g/dL Hct (35.3-44.9) % MCV (83.0-100.0) fL MCH (28.0-33.3) pg MCHC (31.6-35.5) g/dL RDW (11.5-14.5) % Plt Count (140-400) K/mcL MPV (9.4-12.4) fL Immature Gran % (0-4) % Seg Neutrophils % % Lymphocytes % % Monocytes % % Eosinophils % % Basophils % % Neutrophils # (1.6-8.9) K/mcL Lymphocytes # (0.6-4.6) K/mcL Monocytes # (0.0-1.3) K/mcL Eosinophils # (0.0-0.6) K/mcL Basophils # (0.0-0.2) K/mcL PT (9.4-12.1) Seconds INR APTT (26.0-36.0) Seconds Sodium (136-145) mEq/L Potassium (3.5-5.1) mEq/L Chloride (98-107) mEq/L Carbon Dioxide (23-29) mEq/L BUN (8-23) mg/dL Creatinine (0.60-1.20) mg/dL Est GFR ( Amer) (> 60) Est GFR (Non-Af Amer) (> 60) BUN/Creatinine Ratio (6-26) Glucose (70-105) mg/dL Calculated Osmolality (280-300) Calcium (8.6-10.3) mg/dL Magnesium (1.6-2.6) mg/dL Troponin I (< 0.04) ng/mL TSH (0.340-5.600) mcIU/mL Urine Nitrite Negative (Negative) Urine Urobilinogen Normal (Normal) mg/dL Ur Leukocyte Esterase Trace H (Negative) Urine Microscopic RBC 0-3 (0-3) per hpf Urine Microscopic WBC 0-3 (0-3) per hpf Ur Squamous Epith Cells Few (None-Few) per lpf Urine Bacteria Many H (None-Few) per hpf Hyaline Casts None Seen (None-Few) per lpf Ur Culture Indicated? YES A (NO) - Radiology Data Radiology results reviewed: Yes I reviewed the patient's radiology results. - EKG Data EKG attestation: Yes I reviewed and interpreted this EKG. EKG results narrative: A. fib with RVR, rate 129, normal axis, no acute ischemic changes Critical Care Time Critical Care Time: Yes Total Critical Care Time: 30 Attestation: I personally spent ___30___ minutes devoted to the care of this critically ill patient with new onset A. fib with RVR. This time excludes the time for billable procedures.
--- NOTE | 2018-02-20 14:34 | Emergency Department Note ---
Disposition Clinical Impression: New onset atrial fibrillation, Chest pain Disposition: Admitted As Inpatient Condition: Fair General Adult HPI - General Chief complaint: ED Chest Pain Stated complaint: CP Time Seen by Provider: 02/20/18 13:51 Source: patient, EMS Limitations: no limitations - History of Present Illness Pain Scale: 5 - Related Data Home Medications Medication Instructions Recorded Confirmed Aspirin [Adult Low Dose Aspirin EC] 81 mg PO DAILY 05/14/15 02/01/18 Loratadine [Claritin] 10 mg PO DAILY 05/14/15 02/01/18 Losartan Potassium [Cozaar] 100 mg PO DAILY 05/14/15 02/01/18 Montelukast [Singulair] 10 mg PO DAILY 05/14/15 02/01/18 Simvastatin [Zocor] 20 mg PO HS 05/14/15 02/01/18 Sodium Chloride [Sodium Chloride 1 gm PO BID 05/14/15 02/01/18 Tab] Spironolactone [Aldactone] 25 mg PO DAILY 05/14/15 02/01/18 l Gasseri/B Bifidum/B Longum 1 each PO DAILY 05/14/15 02/01/18 [[employer] Capsule] Cyanocobalamin (Vitamin B-12) 1,000 mcg SL Q2W 11/18/16 02/01/18 [Vitamin B-12] Escitalopram [Lexapro] 10 mg PO DAILY 11/18/16 02/01/18 Carboxymethylcell/Hypromellose 2 drop OP Q6H PRN 12/01/16 02/01/18 [Genteal Gel Drops] Metoprolol XL (24 HR) Succ [Toprol 50 mg PO DAILY 12/01/16 02/01/18 Xl] Previous Rx's Medication Instructions Recorded Fluticasone Propionate Nasal 50 mcg NS DAILY #1 bottle 08/21/15 [Flonase] Pentoxifylline [TRENtal] 400 mg PO BID #60 tablet.er 01/22/18 Allergies Allergy/AdvReac Type Severity Reaction Status Date / Time enalapril Allergy Cough Verified 02/20/18 13:54 codeine AdvReac See Verified 02/20/18 13:54 Comments Past Medical History - Past Medical History Medical history: Reports: arthritis, COPD, hyperlipidemia, hypertension, malignancy, syncope Psychiatric history: Reports: anxiety, depression FIELDWORK COORDINATOR history: Reports: no FIELDWORK COORDINATOR history - Social History Smoking Status: Never smoker Smokeless Tobacco Status: No Alcohol use: Reports: occasionally Drug use: Reports: none Physical Exam - General Limitations: no limitations General appearance: alert, in no apparent distress Course Vital Signs Temperature 99.0 F 02/20/18 13:50 Pulse Rate 133 02/20/18 13:50 Respiratory Rate 14 02/20/18 13:50 Blood Pressure 153/90 02/20/18 13:50 O2 Sat by Pulse Oximetry 99 02/20/18 13:50 Temperature 99.0 F 02/20/18 13:50 Pulse Rate 79 02/20/18 16:38 Respiratory Rate 14 02/20/18 16:38 Blood Pressure 144/75 02/20/18 16:38 O2 Sat by Pulse Oximetry 98 02/20/18 16:38 Oxygen Delivery Oxygen Delivery Room Air Medical Decision Making - Lab Data Result diagrams: 02/20/18 14:25 02/20/18 14:25 Lab Results 02/20/18 02/20/18 02/20/18 Range/Units 14:25 14:25 14:25 WBC 5.3 (4.3-11.1) K/mcL RBC 4.24 (3.82-4.97) M/mcL Hgb 13.3 (11.5-15.4) g/dL Hct 40.1 (35.3-44.9) % MCV 94.6 (83.0-100.0) fL MCH 31.4 (28.0-33.3) pg MCHC 33.2 (31.6-35.5) g/dL RDW 13.4 (11.5-14.5) % Plt Count 197 (140-400) K/mcL MPV 9.7 (9.4-12.4) fL Immature Gran % 0.4 (0-4) % Seg Neutrophils % 74.8 % Lymphocytes % 12.5 % Monocytes % 9.8 % Eosinophils % 1.7 % Basophils % 0.8 % Neutrophils # 4.0 (1.6-8.9) K/mcL Lymphocytes # 0.7 (0.6-4.6) K/mcL Monocytes # 0.5 (0.0-1.3) K/mcL Eosinophils # 0.1 (0.0-0.6) K/mcL Basophils # 0.0 (0.0-0.2) K/mcL PT 11.4 (9.4-12.1) Seconds INR 1.0 APTT 28.1 (26.0-36.0) Seconds Sodium 132 L (136-145) mEq/L Potassium 4.1 (3.5-5.1) mEq/L Chloride 100 (98-107) mEq/L Carbon Dioxide 26 (23-29) mEq/L BUN 8 (8-23) mg/dL Creatinine 0.82 (0.60-1.20) mg/dL Est GFR ( Amer) > 60 (> 60) Est GFR (Non-Af Amer) > 60 (> 60) BUN/Creatinine Ratio 10 (6-26) Glucose 147 H (70-105) mg/dL Calculated Osmolality 275 L (280-300) Calcium 8.9 (8.6-10.3) mg/dL Magnesium 1.6 (1.6-2.6) mg/dL Troponin I < 0.03 (< 0.04) ng/mL TSH 2.274 (0.340-5.600) mcIU/mL Urine Nitrite (Negative) Urine Urobilinogen (Normal) mg/dL Ur Leukocyte Esterase (Negative) Urine Microscopic RBC (0-3) per hpf Urine Microscopic WBC (0-3) per hpf Ur Squamous Epith Cells (None-Few) per lpf Urine Bacteria (None-Few) per hpf Hyaline Casts (None-Few) per lpf Ur Culture Indicated? (NO) 02/20/18 Range/Units 14:52 WBC (4.3-11.1) K/mcL RBC (3.82-4.97) M/mcL Hgb (11.5-15.4) g/dL Hct (35.3-44.9) % MCV (83.0-100.0) fL MCH (28.0-33.3) pg MCHC (31.6-35.5) g/dL RDW (11.5-14.5) % Plt Count (140-400) K/mcL MPV (9.4-12.4) fL Immature Gran % (0-4) % Seg Neutrophils % % Lymphocytes % % Monocytes % % Eosinophils % % Basophils % % Neutrophils # (1.6-8.9) K/mcL Lymphocytes # (0.6-4.6) K/mcL Monocytes # (0.0-1.3) K/mcL Eosinophils # (0.0-0.6) K/mcL Basophils # (0.0-0.2) K/mcL PT (9.4-12.1) Seconds INR APTT (26.0-36.0) Seconds Sodium (136-145) mEq/L Potassium (3.5-5.1) mEq/L Chloride (98-107) mEq/L Carbon Dioxide (23-29) mEq/L BUN (8-23) mg/dL Creatinine (0.60-1.20) mg/dL Est GFR ( Amer) (> 60) Est GFR (Non-Af Amer) (> 60) BUN/Creatinine Ratio (6-26) Glucose (70-105) mg/dL Calculated Osmolality (280-300) Calcium (8.6-10.3) mg/dL Magnesium (1.6-2.6) mg/dL Troponin I (< 0.04) ng/mL TSH (0.340-5.600) mcIU/mL Urine Nitrite Negative (Negative) Urine Urobilinogen Normal (Normal) mg/dL Ur Leukocyte Esterase Trace H (Negative) Urine Microscopic RBC 0-3 (0-3) per hpf Urine Microscopic WBC 0-3 (0-3) per hpf Ur Squamous Epith Cells Few (None-Few) per lpf Urine Bacteria Many H (None-Few) per hpf Hyaline Casts None Seen (None-Few) per lpf Ur Culture Indicated? YES A (NO) Critical Care Time Critical Care Time: Yes Total Critical Care Time: 35 Attestation: Critical care performed: Time is exclusive of separately billable procedures. Time includes: direct patient care, patient reassessment, coordination of patient care, interpretation of data (laboratory data, radiology data, and respiratory data), review of patient's medical records, medical consultation and documentation of patient care. Ar lemons Procedures included in critical care time: Procedures excluded from critical care time: Attestation Statement - Attestation Attestation: I examined this patient and my medical decision-making was reviewed with the [facility] Physician. I agree with the documented findings, disposition and treatment plan as described except to the extent set forth below. Patient resisted ED with a chief complaint of palpitations. Onset this afternoon while she was walking in her house. She has some pressure across her chest as well. She was found to be in A. fib by EMS. She states this is a new diagnosis for her. She denies any history coronary disease or valvular disease. On examination she is in no acute distress. She is tachycardic with an irregularly irregular rhythm. Plan. Cardiac workup. Rate control. Admission. Last heart rate was 101. Patient on Cardizem drip. TSH electrolytes unremarkab le. Calling for admission. Chest X-Ray 02/20/18 13:52 IMPRESSION: No acute pulmonary disease. Calcific atherosclerotic disease aorta. Absent rib posterior right presumably related to prior thoracotomy. D/ / Shayne Heath / Shayne Heath Interpreting Provider: Shayne Heath
[2018-02-20 14:51] LABS: Basophils % 0.8 %; Eosinophils # 0.1 K/mcL (0.0-0.6); Eosinophils % 1.7 %; Hematocrit 40.1 % (35.3-44.9); Hemoglobin 13.3 g/dL (11.5-15.4); Immature Granulocytes % 0.4 % (0-4); Lymphocytes # 0.7 K/mcL (0.6-4.6); Lymphocytes % 12.5 %; Mean Corpuscular HGB Conc 33.2 g/dL (31.6-35.5); Mean Corpuscular Hemoglobin 31.4 pg (28.0-33.3); Mean Corpuscular Volume 94.6 fL (83.0-100.0); Mean Platelet Volume 9.7 fL (9.4-12.4); Monocytes # 0.5 K/mcL (0.0-1.3); Monocytes % 9.8 %; Platelet Count 197 K/mcL (140-400); Red Blood Count 4.24 M/mcL (3.82-4.97); Red Cell Distribution Width 13.4 % (11.5-14.5); Segmented Neutrophils % 74.8 %
[2018-02-20 15:07] LABS: Prothrombin Time 11.4 Seconds (9.4-12.1)
[2018-02-20 15:08] LABS: Bilirubin,Urine Negative (Negative); Blood,Urine Negative (Negative); Clarity,Urine Clear (Clear); Color,Urine Yellow (Yellow); Glucose,Urine (UA) Normal (Normal); Ketones,Urine Negative (Negative); Leukocyte Esterase,Urine Trace (Negative); Nitrite,Urine Negative (Negative); PH,Urine 6.5 pH Units (5.0-8.0); Protein,Urine Negative (Neg-Trace); Specific Gravity,Urine < 1.005 (1.010-1.025); Urobilinogen,Urine Normal (Normal)
[2018-02-20 15:09] LABS: Activated Partial Thrombo Time 28.1 Seconds (26.0-36.0)
[2018-02-20 15:10] LABS: Bacteria,Urine Many per hpf (None-Few); Hyaline Casts,Urine None Seen per lpf (None-Few); RBC,Urine 0-3 per hpf (0-3); Squamous Epithelial Cell,Urine Few per lpf (None-Few); WBC,Urine 0-3 per hpf (0-3)
[2018-02-20 15:13] LABS: BUN/Creatinine Ratio 10 (6-26); Blood Urea Nitrogen 8 mg/dL (8-23); Calcium 8.9 mg/dL (8.6-10.3); Carbon Dioxide 26 mEq/L (23-29); Chloride 100 mEq/L (98-107); Glucose 147 mg/dL (70-105); Magnesium 1.6 mg/dL (1.6-2.6); Osmolality,Calculated 275 (280-300); Potassium 4.1 mEq/L (3.5-5.1); Sodium 132 mEq/L (136-145); Troponin I < 0.03 ng/mL (< 0.04); eGFR For Non-African Americans > 60 (> 60)
[2018-02-20 15:27] LABS: Thyroid Stimulating Hormone 2.274 mcIU/mL (0.340-5.600)
[2018-02-20] MEDS ORDERED: Naloxone 0.4 MG/ML INJ IVP PRN (17:21)
[2018-02-20] MEDS ORDERED: *HR* Enoxaparin 80 MG/0.8 ML SYRINGE SQ SCH (18:29)
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
[2018-02-20] MEDS ORDERED: Acetaminophen 325 MG TABLET PO PRN (23:57)
[2018-02-21 07:14] VITALS: BP 160/71
[2018-02-21] MEDS ORDERED: *HR* Enoxaparin 80 MG/0.8 ML SYRINGE SQ SCH (09:00)
[2018-02-21] MEDS ORDERED: Spironolactone 25 MG TABLET PO SCH (09:00)
[2018-02-21] MEDS ORDERED: Loratadine 10 MG TABLET PO SCH (09:00)
--- NOTE | 2018-02-21 15:56 | Discharge Summary ---
Orders not resulted at time of discharge: Pending orders 02/20/18 14:52 Culture,Urine [RM] Stat Date of Encounter: 02/21/18 Time of Encounter: 15:54 - Discharge Diagnosis (1) PAF (paroxysmal atrial fibrillation) Priority: Primary Status: Acute (2) Chest pain Priority: Primary Status: Acute Qualifiers: Chest pain type: unspecified Qualified Code(s): R07.9 - Chest pain, unspecified (3) HTN (hypertension) Priority: Secondary Status: Chronic Qualifiers: Hypertension type: essential hypertension Qualified Code(s): I10 - Essential (primary) hypertension (4) HLD (hyperlipidemia) Priority: Secondary Status: Chronic Qualifiers: Hyperlipidemia type: unspecified Qualified Code(s): E78.5 - Hyperlipidemia, unspecified Hospital course: HOSPITAL COURSE: The patient is a 77-year-old woman. We admitted her after she had experienced an episode of atrial fibrillation with rapid ventricular rate. She was put on IV Cardizem drip. She converted to normal sinus rhythm in the first 12 hours after the admission. Echocardiogram was done he did not show any significant abnormalities. Her TSH is normal. The patient does not have any symptoms/signs suggesting coronary artery disease. Troponin was checked at admission it was normal. CONDITION AT DISCHARGE: She feels good. Denies chest pain and difficulty breathing. She can ambulate on her own. Skin: Free of rash and discoloration. Respiratory: Normal breath sounds with no crackles and wheezes bilaterally. CV: Heart is regular with no gallop or murmur. GI: Abdomen is flat and soft with no palpable mass or visceromegaly. Neuro exam: There is no focal deficits. Normal speech, swallowing and gait. Telemetry showing normal sinus rhythm. SEE DISCHARGE ORDERS/MEDICATIONS.. She will be on Eliquis. Discharge discussed with: patient, nurse, case management - Time Spent with Patient Total time spent providing and/or coordinating discharge services: Greater than 30 minutes (40 minutes..) - Discharge Medications Prescriptions: Apixaban [Eliquis] 5 mg PO BID #60 tablet Home Medications: Loratadine [Claritin] 10 mg PO DAILY 05/14/15 [History] Losartan Potassium [Cozaar] 100 mg PO BID 05/14/15 [History] Montelukast [Singulair] 10 mg PO DAILY 05/14/15 [History] Simvastatin [Zocor] 20 mg PO HS 05/14/15 [History] Sodium Chloride [Sodium Chloride Tab] 1 gm PO BID 05/14/15 [History] Spironolactone [Aldactone] 25 mg PO DAILY 05/14/15 [History] l Gasseri/B Bifidum/B Longum [[employer] Capsule] 1 tab PO DAILY 05/14/15 [History] Cyanocobalamin (Vitamin B-12) [Vitamin B-12] 1,000 mcg SL MOWEFR 11/18/16 [History] Escitalopram [Lexapro] 10 mg PO DAILY 11/18/16 [History] Carboxymethylcell/Hypromellose [Genteal Gel Drops] 2 drop OP Q6H PRN 12/01/16 [History] Pentoxifylline [TRENtal] 400 mg PO BID #60 tablet.er 01/22/18 [Rx] Aspirin [Lo-Dose Aspirin EC] 81 mg PO DAILY 02/20/18 [History] Metoprolol [Lopressor] 25 mg PO BID 02/20/18 [History] Pantoprazole Sodium [Protonix] 40 mg PO DAILY 02/20/18 [History] Apixaban [Eliquis] 5 mg PO BID #60 tablet 02/21/18 [Rx] Allergies/Adverse Reactions: Allergy/AdvReac Type Severity Reaction Status Date / Time enalapril Allergy Cough Verified 02/20/18 13:54 codeine AdvReac See Verified 02/20/18 13:54 Comments Date of admission: 02/20/18 18:26 Primary care physician: Mariaelena Arevalo DO Discharging clinician: Luis Young Anticipated date of discharge: 02/21/18 - Constitutional Vitals: Temp Pulse Resp BP Pulse Ox 97.5 F L 69 19 160/71 95 02/21/18 07:09 02/21/18 07:09 02/21/18 07:09 02/21/18 07:09 02/21/18 07:09 General appearance: Present: A&O X 3, no acute distress, answers questions appropriately Exam: xx - Patient Status Disposition: Home, Self-Care Condition: Good Functional capacity at discharge: independent ambulation Overall status at discharge: patient is back to baseline - Discharge Instructions Instructions: Apixaban (By mouth), Atrial Fibrillation (DC) Follow Up With: Mariaelena Arevalo DO [Primary Care Provider] - 03/01/18 10:30 am (follow up apt will be with Kalee Fernandez) - Diet and Activity Activity: resume usual activities as tolerated Diet: low fat, low cholesterol - VTE Reasons for not Prescribing Prophylaxis: Not indicated-Anticoagulated or INR therapeutic Deep Vein Thrombosis/Pulmonary Embolism Present on Admission: No
--- NOTE | 2018-02-22 18:40 | Electrocardiograph Report ---
[facility] Test Date: 2018-02-20 Pat Name: Kalani Ridley Department: EXAM4 Room: 2NE21 Gender: F Color Coater: : 1940 Requested By: Darío Prado Order Number: [id number] Reading MD: Mariaelena Arevalo Measurements Intervals [place] Rate: 129 P: AK: QRS: 86 QRSD: 88 T: 1 QT: 328 QTc: 481 Interpretive Statements Atrial fibrillation Borderline right axis deviation Borderline ST depression, diffuse leads Electronically Signed On 02-22-2018 18:39:07 EST by Mariaelena Arevalo
--- NOTE | 2018-02-23 18:23 | Electrocardiograph Report ---
[place] [id number] Test Date: 2018-02-21 Pat Name: Kalani Ridley Department: 111 Room: 2N1 Gender: F Title Abstractor: : 1940 Requested By: Luis Young Order Number: [id number] Reading MD: Shadi Omalley Measurements Intervals [place] Rate: 74 P: 71 ME: 125 QRS: 52 QRSD: 94 T: 92 QT: 401 QTc: 428 Interpretive Statements SINUS RHYTHM NONSPECIFIC T-WAVE ABNORMALITY Electronically Signed On 02-23-2018 18:21:23 EST by Shadi Omalley
== END 2018-02-21 16:32 | disposition home or self-care (01) | DRG 310 ==
LOC: 2NENU 13:46 → EMEROOARM 13:46 → 2NENU 17:10 → SUATTDRO 18:26
PROVIDERS: ADMIT Student in an Organized Health Care Education/Training Program; ATTEND Internal Medicine

== ENCOUNTER 2018-05-04 09:27 | Inpatient (IN) ==
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
[2018-05-04] MEDS ORDERED: Acetaminophen IV 1,000 MG/100 ML INFUS..BTL IVPB ONE (10:17)
[2018-05-04] MEDS ORDERED: *HR* Promethazine 25 MG/ML VIAL IVP PRN (10:17)
[2018-05-04] MEDS ORDERED: Famotidine 20 MG/2 ML VIAL IVP ONE (10:17)
[2018-05-04] MEDS ORDERED: *HR* OxyCODONE Immed Rel 5 MG TABLET PO PRN ×2 (10:17→20:14)
[2018-05-04] MEDS ORDERED: Gabapentin 300 MG CAPSULE PO ONE (10:17)
[2018-05-04] MEDS ORDERED: Ondansetron 4 MG/2 ML VIAL IVP ONE (10:17)
[2018-05-04] MEDS ORDERED: *HR* Labetalol 20 MG/4 ML SYRINGE IVP PRN (10:17)
[2018-05-04] MEDS ORDERED: *HR* HYDROmorphone (PF) 1 MG/ML SYRINGE IVP PRN (10:17)
[2018-05-04] MEDS ORDERED: Lidocaine -MPF 2% 2 ML VIAL ONE (10:19)
[2018-05-04] MEDS ORDERED: *HR* Succinylcholine 200 MG/10 ML VIAL IVP ONE (10:19)
[2018-05-04] MEDS ORDERED: Dexamethasone 4 MG/ML VIAL ONE (10:19)
[2018-05-04] MEDS ORDERED: *HR* FentaNYL (PF) 100 MCG/2 ML VIAL ONE (10:20)
[2018-05-04] MEDS ORDERED: *HR* Propofol 200 MG/20 ML VIAL IVP ONE (10:20)
[2018-05-04] MEDS ORDERED: Albuterol 2.5 MG/3 ML NEBULIZER IH ONE (10:37)
[2018-05-04] MEDS ORDERED: Albuterol 2.5 MG/3 ML NEBULIZER ONE (10:39)
[2018-05-04] MEDS ORDERED: Ringers Solution, Lactated 1,000 ML IVC SCH (10:45)
--- NOTE | 2018-05-04 10:45 | History & Physical Report ---
Date of Encounter: 05/04/18 Time of Encounter: 10:44 24 Hour HP Update - Instructions Instructions: If the History and Physical is less than 30 days old and was completed prior to A.M. admission and or procedure and has NOT been updated on calendar day of procedure please complete this update prior to performing procedure. - Update Patient reports changes in Medical Condition: No Changes in examination, assessment, or condition: No Changes in Medication: No Preop tests/diagnostics Reviewed: Yes Surgery Remains Indicated: Yes Consent for Planned Operative Procedure(s) Verified: Yes - Pre-Operative Checklist Preoperative Checklist Indicated: Yes Prophylactic Antibiotic Ordered: Yes Home Medications Include Beta Cara: No Is VTE Prophylaxis Indicated?: Yes
[2018-05-04] MEDS ORDERED: *HR* Rocuronium Bromide 50 MG/5 ML VIAL ONE (11:36)
[2018-05-04] MEDS ORDERED: Bupivacaine-MPF 0.25% 10 ML VIAL ONE (11:54)
[2018-05-04] MEDS ORDERED: Albumin Human 5% 25.0 GM/500 ML VIAL ONE (12:11)
[2018-05-04] MEDS ORDERED: CeFAZolin Syr 2,000MG/20 ML 2,000 MG/20 ML SYRINGE IVPB ONE (12:38)
[2018-05-04] MEDS ORDERED: *HR* Morphine 10 MG/ML VIAL ONE (13:12)
[2018-05-04] MEDS ORDERED: Mannitol 20% 100 GM/500 ML IV.SOLN IVC ONE (13:43)
[2018-05-04] MEDS ORDERED: Mannitol 25% vial 12.5 GM/50 ML VIAL IVP ONE (15:00)
[2018-05-04] MEDS ORDERED: Neostigmine Methylsulfate 3 MG/3 ML SYRINGE ONE (16:22)
--- NOTE | 2018-05-04 16:56 | Operative Note ---
Date of procedure: 05/04/18 Pre-op diagnosis: Left renal mass Post-op diagnosis: same Procedure: Left robotic partial nephrectomy Implants: 19 [place] Terrance drain 16-[place] Lopez catheter Complications: None Anesthesia: MADELEINEA Surgeon: Antwon Allison Was there an mobile sales assistant present: Yes Director Transition: Amalia Li Estimated blood loss (cc): 50 Specimen: left renal mass. Fat over tumor Condition: stable Disposition: PACU Procedure in Detail: Indications: Kalani is a 77-year-old woman who presents with a left renal mass. After being advised of her options she elected to undergo a left robotic partial nephrectomy. She was informed of the risks of the procedure which include but are not limited to bleeding, infection, injury to other structures, need for further procedures, urine leak, bowel injury, need for complete nephrectomy, need for open conversion, and the risk of anesthesia. She is willing to proceed. Procedure After informed consent was obtained the patient was brought back to the o perating room and placed in the supine position. A timeout was performed. Gen. anesthesia was then administered and an endotracheal tube was placed. Appropriate IV access was obtained. She was then placed in the flank position. Her left side was up. All pressure points were padded. She was well secured to the table. She was then prepped and draped in the usual sterile fashion. We then marked out our incision 2 fingerbreadths superior to the umbilicus and 2 fingerbreadths lateral to that. A robotic port was marked superior to this at the costal margin. 2 more robotic ports were marked out inferior to this. At the port located inferior to the umbilicus and 8 mm incision was made. The Veress needle was introduced. 2 clicks were heard. It past the water drop test. Insufflation was then initiated. Pressures were low consecutively. The abdomen was insufflated. Once the pressure was up to 15, we inserted the 8 mm robotic port. Entry was obtained into the abdomen. The bowel was surveyed below and there is no evidence of bowel injury. Two robotic ports were then inserted suprior to the initial port and one inferior to it. A 12 mm port was placed for the mobile sales assistant in the midline above the umbilicus. The robot was docked. The bowel was reflected off the kidney along the white line of Toldt. During this Gerota's fascia was entered overtop of the left renal vein. The left renal vein was dissected out. Superior and posterior to this I identified the renal artery and this was dissected out. I then turned my attention to the fat overlying the kidney. This was dissected off the kidney. The kidney was mobilized laterally to expose the lateral edge of the kidney. The tumor was noted. The fat over top the tumor was removed and sent separately. Intraoperative ultrasound was obtained and I marked out my incisions. Mannitol was then given. 0.5 mL of ICG was given. Once the dye was seen within the artery I placed bulldogs 2 on the renal artery. The tumor was excised sharply using cold scissors. Using ICG was able to confirm a good deep margin. Once the tumor was removed I utilized a 3-O V-LOC suture to close the deeper vessels in a running fashion. At this point the gas ran out from the Airseal. There was difficulty getting the gas tanks replaced. This added to the warm ischemia time. Once we had adequate insufflation I confirmed that the deeper vessels were well secured. The bulldog clamps were removed. 19 minutes of warm ischemia time was noted. I then closed the capsule to itself using O V-LOC suture in an interrupted fashion with the sliding clip renorrhaphy technique. Hemostasis was good. Once the bulldog clamp was removed and FloSeal was applied to the resection area. Hemostasis seemed adequate. A 19 [place] Terrance drain was then placed. The specimen was placed in an entrapment bag. All the ports were then removed. The specimen was removed through the Airseal port. This port was closed in a [id number] fashion using an 0 Vicryl suture. The wounds were closed using 4-0 Monocryl suture. The drain was secured to the skin using a 2-0 nylon suture. The abdomen was then washed and dried and Dermabond was applied to the wounds. The patient was then awakened from general anesthesia and brought to recovery room in good condition. All sponge, needle, and instrument counts were correct.
--- NOTE | 2018-05-04 18:50 | Anesthesia Evaluation Post Op ---
Date of Encounter: 05/04/18 Time of Encounter: 18:39 - Discharge PostOp Status: Transfer Patient to floor (Patient's vital signs have been reviewed. Patient is stable postoperatively and has adequately recovered from anesthesia. Patient is determined to have stable airway patency and respiratory function including respiratory rate and oxygen saturation. Patient has a stable heart rate, blood pressure and adequate hydration. Patients mental status is acceptable. Patients temperature is appropriate. Pain and nausea are adequately controlled.)
[2018-05-04] MEDS ORDERED: *HR* HYDROcodone/Acet 5/325 mg TABLET PO PRN (20:14)
[2018-05-04] MEDS ORDERED: Naloxone 0.4 MG/ML INJ IVP PRN (20:14)
[2018-05-04] MEDS ORDERED: Ondansetron 4 MG/2 ML VIAL IVP PRN (20:14)
[2018-05-04] MEDS: 0.9 % Sodium Chloride 1,000 ML IVC SCH (21:00)
[2018-05-05] MEDS: 0.9 % Sodium Chloride 1,000 ML IVC SCH (04:08)
[2018-05-05] MEDS: Acetaminophen 325 MG TABLET PO PRN ×2 (08:28→22:32)
--- NOTE | 2018-05-05 08:38 | Urology Progress Note ---
Date of Encounter: 05/05/18 Time of Encounter: 08:35 - Assessment and Plan (1) Renal malignant tumor Current Visit: Yes Status: Acute Assessment and plan: 77-year-old woman with a history of a left renal mass status post left robotic partial nephrectomy, postoperative day #1. She is doing well. Plan: 1. Clear liquid diet for breakfast, and we will advance as tolerated. 2. We will get her out of bed today and ambulate 3 times. 3. Hep-Lock IV fluids. 4. We will have her obtain morning labs. I discussed with the risk of bleeding from a blood draw is minimal for her. She understood. 5. Discontinue Lopez catheter. 6. I anticipate she will stay in the hospital today with possible discharge home tomorrow. We will continue the TK for now. Dr. George Díaz will be managing the patient during her postoperative stay. Qualifiers: Laterality: left Qualified Code(s): C64.2 - Malignant neoplasm of left kidney, except renal pelvis Progress Note Narrative: Postoperative day #1 status post left robotic partial nephrectomy. She is doing well. She is having some suprapubic pain. She denies any shortness of breath. She is breathing well. She has not been out of bed yet. Objective Initial Vital Signs Temp Pulse Resp BP Pulse Ox 98.4 F 59 18 129/61 98 05/04/18 09:48 05/04/18 09:48 05/04/18 09:48 05/04/18 09:48 05/04/18 09:48 - General physical appearance Present: well developed, well nourished, no distress - Respiratory Present: normal respiratory effort - Abdomen Present: soft (Appropriately tender. TK with mostly serous drainage.) - Genitourinary Urine Appearance: Present: Clear - Integumentary Present: no rash Consult Discharge Plan - Plan Referrals: Mariaelena Arevalo DO [Primary Care Provider] -
[2018-05-05 14:49] LABS: Basophils % 0.1 %; Hematocrit 33.7 % (35.3-44.9); Immature Granulocytes % 0.3 % (0-4); Lymphocytes # 1.1 K/mcL (0.6-4.6); Mean Corpuscular HGB Conc 32.3 g/dL (31.6-35.5); Mean Corpuscular Hemoglobin 30.3 pg (28.0-33.3); Mean Corpuscular Volume 93.6 fL (83.0-100.0); Mean Platelet Volume 10.3 fL (9.4-12.4); Monocytes % 8.6 %; Neutrophils # 9.6 K/mcL (1.6-8.9); Platelet Count 228 K/mcL (140-400)
[2018-05-05 15:07] LABS: Hemoglobin 10.9 g/dL (11.5-15.4)
[2018-05-05 15:08] LABS: BUN/Creatinine Ratio 16 (6-26); Blood Urea Nitrogen 14 mg/dL (8-23); Calcium 8.7 mg/dL (8.6-10.3); Carbon Dioxide 24 mEq/L (23-29); Chloride 105 mEq/L (98-107); Glucose 122 mg/dL (70-105); Osmolality,Calculated 280 (280-300); Potassium 3.9 mEq/L (3.5-5.1); Sodium 134 mEq/L (136-145); eGFR For Non-African Americans > 60 (> 60)
[2018-05-06 08:00] VITALS: BP 144/73
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
== END 2018-05-06 09:50 | disposition home or self-care (01) | DRG 658 ==
LOC: SAMDAY 09:27 → 2ANU 20:00
PROVIDERS: ADMIT Urology; ATTEND Urology

== ENCOUNTER 2019-01-20 20:28 | Inpatient (IN) ==
[2019-01-20 20:56] LABS: Basophils % 0.2 %; Eosinophils % 0.3 %; Hematocrit 30.7 % (35.3-44.9); Hemoglobin 10.5 g/dL (11.5-15.4); Immature Granulocytes % 0.6 % (0-4); Lymphocytes # 1.2 K/mcL (0.6-4.6); Lymphocytes % 9.8 %; Mean Corpuscular HGB Conc 34.2 g/dL (31.6-35.5); Mean Corpuscular Hemoglobin 33.7 pg (28.0-33.3); Mean Corpuscular Volume 98.4 fL (83.0-100.0); Mean Platelet Volume 10.3 fL (9.4-12.4); Neutrophils # 10.1 K/mcL (1.6-8.9); Platelet Count 272 K/mcL (140-400); Red Blood Count 3.12 M/mcL (3.82-4.97); Red Cell Distribution Width 12.2 % (11.5-14.5); Segmented Neutrophils % 81.1 %; White Blood Count 12.5 K/mcL (4.3-11.1)
[2019-01-20 21:04] LABS: INR 1.8
[2019-01-20 21:07] LABS: Activated Partial Thrombo Time 29.6 Seconds (26.0-36.0)
[2019-01-20 21:20] LABS: Calcium 8.9 mg/dL (8.6-10.3); Potassium 4.7 mEq/L (3.5-5.1)
[2019-01-20] MEDS ORDERED: Pantoprazole 40 MG VIAL IVP ONE (21:26)
[2019-01-20] MEDS ORDERED: 0.9 % Sodium Chloride 1,000 ML IVC ONE (21:33)
[2019-01-20] MEDS ORDERED: cefTRIAXone 1,000 MG in Water for inj. (sterile) 10 ML IVP ONE (21:45)
[2019-01-20] MEDS ORDERED: Naloxone 0.4 MG/ML INJ IVP PRN (23:44)
[2019-01-21 00:16] LABS: Bilirubin,Urine Negative (Negative); Blood,Urine Negative (Negative); Clarity,Urine Clear (Clear); Color,Urine Yellow (Yellow); Glucose,Urine (UA) Normal (Normal); Ketones,Urine Negative (Negative); Leukocyte Esterase,Urine Negative (Negative); Nitrite,Urine Negative (Negative); Protein,Urine Negative (Neg-Trace); Specific Gravity,Urine 1.022 (1.010-1.025); Urobilinogen,Urine Normal (Normal)
[2019-01-21 00:39] LABS: Basophils % 0.1 %; Eosinophils # 0.1 K/mcL (0.0-0.6); Eosinophils % 0.5 %; Hematocrit 25.5 % (35.3-44.9); Immature Granulocytes % 0.5 % (0-4); Lymphocytes # 1.1 K/mcL (0.6-4.6); Lymphocytes % 10.4 %; Mean Corpuscular HGB Conc 32.2 g/dL (31.6-35.5); Mean Corpuscular Hemoglobin 33.1 pg (28.0-33.3); Mean Corpuscular Volume 102.8 fL (83.0-100.0); Mean Platelet Volume 10.4 fL (9.4-12.4); Monocytes # 0.7 K/mcL (0.0-1.3); Monocytes % 6.5 %; Neutrophils # 8.9 K/mcL (1.6-8.9); Platelet Count 229 K/mcL (140-400); Red Blood Count 2.48 M/mcL (3.82-4.97); Red Cell Distribution Width 12.3 % (11.5-14.5); White Blood Count 10.8 K/mcL (4.3-11.1)
[2019-01-21 00:40] LABS: Hemoglobin 8.2 g/dL (11.5-15.4)
[2019-01-21 00:47] LABS: INR 2.3; Prothrombin Time 26.2 Seconds (9.4-12.1)
[2019-01-21 01:01] LABS: Alanine Aminotransferase 8 Units/L (7-52); Albumin 3.2 g/dL (3.5-5.7); Albumin/Globulin Ratio 1.5 (1.1-2.2); Alkaline Phosphatase 43 Units/L (34-104); Aspartate Amino Transferase 11 Units/L (13-39); BUN/Creatinine Ratio 69 (6-26); Bilirubin,Total 0.2 mg/dL (0.3-1.0); Blood Urea Nitrogen 70 mg/dL (8-23); Calcium 8.2 mg/dL (8.6-10.3); Carbon Dioxide 22 mEq/L (23-29); Chloride 106 mEq/L (98-107); Chol/HDL Ratio 2.1 (0-4.9); Cholesterol 100 mg/dL (< 200); Globulin 2.1 g/dL (2.4-3.5); Glucose 114 mg/dL (70-105); HDL Cholesterol 47 mg/dL (40-59); LDL Cholesterol,Calculated 30 mg/dL (0-99); Magnesium 1.9 mg/dL (1.6-2.6); Osmolality,Calculated 299 (280-300); Phosphorous 2.6 mg/dL (2.7-4.5); Potassium 4.8 mEq/L (3.5-5.1); Sodium 134 mEq/L (136-145); Total Protein 5.3 g/dL (6.4-8.9); Triglycerides 117 mg/dL (< 150); eGFR For African Americans > 60 (> 60); eGFR For Non-African Americans 53 (> 60)
[2019-01-21] MEDS ORDERED: 0.9 % Sodium Chloride 1,000 ML IVC ONE (01:17)
[2019-01-21 01:38] LABS: Hematocrit 24.9 % (35.3-44.9); Hemoglobin 8.3 g/dL (11.5-15.4)
[2019-01-21] MEDS ORDERED: 0.9 % Sodium Chloride 1,000 ML ONE ×2 (04:55→08:54)
[2019-01-21] MEDS ORDERED: Isovue-370 500 ML BOTTLE IVP ONE (05:30)
[2019-01-21] MEDS ORDERED: Pantoprazole 40 MG VIAL IVP SCH (06:00)
[2019-01-21 08:36] LABS: Hematocrit 17.8 % (35.3-44.9)
[2019-01-21 08:42] LABS: Hemoglobin 5.8 g/dL (11.5-15.4)
[2019-01-21] MEDS ORDERED: *HR* Midazolam HCl 5 MG/5 ML VIAL IVP ONE ×2 (08:54→08:56)
[2019-01-21] MEDS ORDERED: *HR* FentaNYL (PF) 100 MCG/2 ML VIAL IVP ONE (08:54)
[2019-01-21] MEDS ORDERED: *HR* FentaNYL (PF) 100 MCG/2 ML VIAL ONE (08:56)
[2019-01-21] MEDS: Pantoprazole 40 MG in 0.9 % Sodium Chloride Mini Bag 100 ML IVC SCH ×3 (11:09→20:51)
[2019-01-21 12:33] LABS: Hematocrit 31.1 % (35.3-44.9); Hemoglobin 10.5 g/dL (11.5-15.4)
[2019-01-21 12:36] LABS: INR 1.7; Prothrombin Time 19.7 Seconds (9.4-12.1)
[2019-01-21] MEDS ORDERED: 0.9 % Sodium Chloride 250 ML ONE (16:31)
[2019-01-21 22:28] LABS: Basophils % 0.1 %; Eosinophils % 0.3 %; Hematocrit 23.7 % (35.3-44.9); Hemoglobin 8.2 g/dL (11.5-15.4); Lymphocytes % 10.6 %; Mean Corpuscular HGB Conc 34.6 g/dL (31.6-35.5); Mean Corpuscular Hemoglobin 33.1 pg (28.0-33.3); Mean Corpuscular Volume 95.6 fL (83.0-100.0); Mean Platelet Volume 10.2 fL (9.4-12.4); Monocytes # 0.7 K/mcL (0.0-1.3); Monocytes % 7.7 %; Neutrophils # 7.6 K/mcL (1.6-8.9); Platelet Count 140 K/mcL (140-400); Red Blood Count 2.48 M/mcL (3.82-4.97); Red Cell Distribution Width 14.5 % (11.5-14.5); Segmented Neutrophils % 80.3 %; White Blood Count 9.4 K/mcL (4.3-11.1)
[2019-01-22] MEDS ORDERED: 0.9 % Sodium Chloride 1,000 ML ONE (00:45)
[2019-01-22] MEDS: Pantoprazole 40 MG in 0.9 % Sodium Chloride Mini Bag 100 ML IVC SCH ×5 (02:00→22:04)
[2019-01-22 03:49] LABS: Hematocrit 21.9 % (35.3-44.9); Hemoglobin 7.6 g/dL (11.5-15.4); Mean Corpuscular HGB Conc 34.7 g/dL (31.6-35.5); Mean Corpuscular Hemoglobin 32.5 pg (28.0-33.3); Mean Corpuscular Volume 93.6 fL (83.0-100.0); Mean Platelet Volume 10.1 fL (9.4-12.4); Platelet Count 132 K/mcL (140-400); Red Blood Count 2.34 M/mcL (3.82-4.97); Red Cell Distribution Width 14.6 % (11.5-14.5); White Blood Count 6.7 K/mcL (4.3-11.1)
[2019-01-22 08:59] LABS: INR 1.3; Prothrombin Time 14.4 Seconds (9.4-12.1)
[2019-01-22] MEDS: Fluticasone Propionate Nasal 50 MCG/SPRAY BOTTLE NS SCH (09:05)
[2019-01-22 09:24] LABS: Activated Partial Thrombo Time 27.8 Seconds (26.0-36.0)
[2019-01-22 10:21] LABS: Hematocrit 25.2 % (35.3-44.9); Hemoglobin 8.8 g/dL (11.5-15.4)
[2019-01-23] MEDS ORDERED: *HR* Metoprolol 5 MG/5 ML VIAL IVP ONE ×2 (02:21→02:23)
[2019-01-23] MEDS: Pantoprazole 40 MG in 0.9 % Sodium Chloride Mini Bag 100 ML IVC SCH ×2 (02:29→07:30)
[2019-01-23 03:26] LABS: Basophils % 0.5 %; Eosinophils # 0.1 K/mcL (0.0-0.6); Eosinophils % 1.4 %; Hematocrit 24.6 % (35.3-44.9); Hemoglobin 8.6 g/dL (11.5-15.4); Immature Granulocytes % 0.8 % (0-4); Lymphocytes # 0.8 K/mcL (0.6-4.6); Lymphocytes % 12.7 %; Mean Corpuscular Volume 94.3 fL (83.0-100.0); Mean Platelet Volume 9.8 fL (9.4-12.4); Monocytes # 0.6 K/mcL (0.0-1.3); Platelet Count 164 K/mcL (140-400); Red Blood Count 2.61 M/mcL (3.82-4.97); Red Cell Distribution Width 14.2 % (11.5-14.5); Segmented Neutrophils % 75.6 %; White Blood Count 6.6 K/mcL (4.3-11.1)
[2019-01-23 03:46] LABS: Blood Urea Nitrogen 24 mg/dL (8-23); Calcium 8.6 mg/dL (8.6-10.3); Carbon Dioxide 20 mEq/L (23-29); Chloride 110 mEq/L (98-107); Glucose 124 mg/dL (70-105); Osmolality,Calculated 289 (280-300); Potassium 3.9 mEq/L (3.5-5.1); Sodium 137 mEq/L (136-145)
[2019-01-23 03:47] LABS: Troponin I < 0.03 ng/mL (< 0.04)
[2019-01-23 04:02] LABS: BUN/Creatinine Ratio 31 (6-26); eGFR For African Americans > 60 (> 60); eGFR For Non-African Americans > 60 (> 60)
[2019-01-23] MEDS: Fluticasone Propionate Nasal 50 MCG/SPRAY BOTTLE NS SCH (07:53)
[2019-01-23] MEDS ORDERED: Naloxone 0.4 MG/ML INJ IVP PRN (16:11)
[2019-01-24 04:21] LABS: Basophils % 0.3 %; Eosinophils # 0.1 K/mcL (0.0-0.6); Eosinophils % 1.3 %; Hematocrit 25.3 % (35.3-44.9); Hemoglobin 8.8 g/dL (11.5-15.4); Immature Granulocytes % 0.3 % (0-4); Lymphocytes # 1.2 K/mcL (0.6-4.6); Lymphocytes % 15.9 %; Mean Corpuscular HGB Conc 34.8 g/dL (31.6-35.5); Mean Corpuscular Volume 94.8 fL (83.0-100.0); Mean Platelet Volume 9.9 fL (9.4-12.4); Monocytes # 0.7 K/mcL (0.0-1.3); Monocytes % 8.7 %; Neutrophils # 5.6 K/mcL (1.6-8.9); Platelet Count 199 K/mcL (140-400); Red Blood Count 2.67 M/mcL (3.82-4.97); Red Cell Distribution Width 13.8 % (11.5-14.5); Segmented Neutrophils % 73.5 %; White Blood Count 7.6 K/mcL (4.3-11.1)
[2019-01-24 04:47] LABS: BUN/Creatinine Ratio 19 (6-26); Blood Urea Nitrogen 16 mg/dL (8-23); Calcium 8.4 mg/dL (8.6-10.3); Carbon Dioxide 22 mEq/L (23-29); Chloride 107 mEq/L (98-107); Glucose 117 mg/dL (70-105); Osmolality,Calculated 282 (280-300); Potassium 4.1 mEq/L (3.5-5.1); Sodium 135 mEq/L (136-145); eGFR For African Americans > 60 (> 60); eGFR For Non-African Americans > 60 (> 60)
[2019-01-24] MEDS: Fluticasone Propionate Nasal 50 MCG/SPRAY BOTTLE NS SCH (09:47)
[2019-01-25] MEDS: Fluticasone Propionate Nasal 50 MCG/SPRAY BOTTLE NS SCH (09:15)
[2019-01-25 09:20] LABS: Hematocrit 30.8 % (35.3-44.9); Mean Corpuscular HGB Conc 34.1 g/dL (31.6-35.5); Mean Corpuscular Hemoglobin 33.1 pg (28.0-33.3); Mean Corpuscular Volume 97.2 fL (83.0-100.0); Mean Platelet Volume 9.8 fL (9.4-12.4); Platelet Count 257 K/mcL (140-400); Red Blood Count 3.17 M/mcL (3.82-4.97); Red Cell Distribution Width 13.9 % (11.5-14.5)
[2019-01-25 09:23] LABS: Hemoglobin 10.5 g/dL (11.5-15.4)
[2019-01-25] MEDS ORDERED: Menthol 9.1 MG LOZENGE PO PRN (11:42)
[2019-01-26] MEDS: Fluticasone Propionate Nasal 50 MCG/SPRAY BOTTLE NS SCH (08:48)
[2019-01-26 10:45] LABS: Hematocrit 28.2 % (35.3-44.9); Hemoglobin 9.2 g/dL (11.5-15.4); Mean Corpuscular HGB Conc 32.6 g/dL (31.6-35.5); Mean Corpuscular Hemoglobin 32.9 pg (28.0-33.3); Mean Corpuscular Volume 100.7 fL (83.0-100.0); Mean Platelet Volume 10.3 fL (9.4-12.4); Platelet Count 269 K/mcL (140-400); White Blood Count 8.1 K/mcL (4.3-11.1)
[2019-01-26 11:51] VITALS: BP 118/67
== END 2019-01-26 16:51 | disposition home or self-care (01) | DRG 377 ==
LOC: 3ANU 20:28 → EMEROOARM 20:28 → 3ANU 22:32 → ICNU 01-21 01:40 → SUATTDRO 01-22 18:35 → 2NENU 01-24 19:04
PROVIDERS: ADMIT Internal Medicine; ATTEND Internal Medicine

== ENCOUNTER 2021-06-19 20:56 | Inpatient (IN) ==
[2021-06-19] MEDS ORDERED: Isovue-370 500 ML BOTTLE IVP ONE (21:15)
[2021-06-19 21:29] LABS: Basophils # 0.1 K/mcL (0.0-0.2); Basophils % 0.5 %; Eosinophils # 0.1 K/mcL (0.0-0.6); Eosinophils % 0.8 %; Hematocrit 48.4 % (35.3-44.9); Immature Granulocytes % 0.4 % (0-4); Lymphocytes # 0.7 K/mcL (0.6-4.6); Lymphocytes % 6.7 %; Mean Corpuscular HGB Conc 33.1 g/dL (31.6-35.5); Mean Corpuscular Hemoglobin 33.8 pg (28.0-33.3); Mean Corpuscular Volume 102.3 fL (83.0-100.0); Mean Platelet Volume 9.1 fL (9.4-12.4); Monocytes # 0.9 K/mcL (0.0-1.3); Monocytes % 8.9 %; Neutrophils # 8.5 K/mcL (1.6-8.9); Platelet Count 239 K/mcL (140-400); Red Blood Count 4.73 M/mcL (3.82-4.97); Red Cell Distribution Width 15.2 % (11.5-14.5); Segmented Neutrophils % 82.7 %; White Blood Count 10.2 K/mcL (4.3-11.1)
[2021-06-19 21:38] LABS: Prothrombin Time 11.6 Seconds (9.4-12.1)
[2021-06-19 21:41] LABS: Activated Partial Thrombo Time 29.9 Seconds (26.0-36.0)
[2021-06-19 22:24] LABS: Influenza A PCR Negative (Negative); Influenza B PCR Negative (Negative); Resp. Syncytial Virus PCR Negative (Negative)
[2021-06-19 22:32] LABS: SARS-CoV-2 by PCR (In House) Negative (Negative)
[2021-06-19 22:54] LABS: BUN/Creatinine Ratio 14 (6-26); Blood Urea Nitrogen 11 mg/dL (8-23); Calcium 9.6 mg/dL (8.6-10.3); Carbon Dioxide 18 mEq/L (23-29); Chloride 101 mEq/L (98-107); Glucose 110 mg/dL (70-105); Magnesium 1.9 mg/dL (1.6-2.6); Osmolality,Calculated 284 (280-300); Sodium 137 mEq/L (136-145); Thyroid Stimulating Hormone 6.911 mcIU/mL (0.340-5.600); Troponin I < 0.03 ng/mL (< 0.04); eGFR For African Americans > 60 (> 60); eGFR For Non-African Americans > 60 (> 60)
[2021-06-20] MEDS ORDERED: *HR* Heparin 5,000 UNIT/ML VIAL IVP ONE (00:47)
[2021-06-20] MEDS ORDERED: *HR* Heparin 5,000 UNIT/ML VIAL IVP PRN ×2 (00:47)
[2021-06-20] MEDS: Heparin 25,000UNIT/250ML 1/2NS 25,000 UNIT/250 ML IV.SOLN IVC SCH (01:18)
[2021-06-20 01:31] LABS: Hematocrit 44.4 % (35.3-44.9); Hemoglobin 14.8 g/dL (11.5-15.4); Mean Corpuscular HGB Conc 33.3 g/dL (31.6-35.5); Mean Corpuscular Hemoglobin 34.1 pg (28.0-33.3); Mean Corpuscular Volume 102.3 fL (83.0-100.0); Mean Platelet Volume 9.7 fL (9.4-12.4); Platelet Count 246 K/mcL (140-400); Red Blood Count 4.34 M/mcL (3.82-4.97); Red Cell Distribution Width 15.4 % (11.5-14.5); White Blood Count 11.2 K/mcL (4.3-11.1)
[2021-06-20 01:39] LABS: Prothrombin Time 11.4 Seconds (9.4-12.1)
[2021-06-20 01:40] LABS: Heparin anti-factor XA UFH 0.05 IU/mL (0.30-0.70)
[2021-06-20] MEDS ORDERED: Melatonin 3 MG TABLET PO PRN (02:42)
[2021-06-20] MEDS ORDERED: Naloxone 0.4 MG/ML INJ IVP PRN (02:42)
[2021-06-20] MEDS ORDERED: Ondansetron ODT 4 MG TAB.RAPDIS SL PRN (02:42)
[2021-06-20 07:26] LABS: Hematocrit 41.7 % (35.3-44.9); Hemoglobin 13.8 g/dL (11.5-15.4); Mean Corpuscular HGB Conc 33.1 g/dL (31.6-35.5); Mean Corpuscular Hemoglobin 33.7 pg (28.0-33.3); Mean Platelet Volume 9.8 fL (9.4-12.4); Platelet Count 211 K/mcL (140-400); Red Blood Count 4.09 M/mcL (3.82-4.97); Red Cell Distribution Width 15.5 % (11.5-14.5); White Blood Count 7.3 K/mcL (4.3-11.1)
[2021-06-20 07:28] LABS: BUN/Creatinine Ratio 14 (6-26); Blood Urea Nitrogen 10 mg/dL (8-23); Calcium 8.9 mg/dL (8.6-10.3); Carbon Dioxide 29 mEq/L (23-29); Chloride 101 mEq/L (98-107); Chol/HDL Ratio 2.3 (0-4.9); Cholesterol 149 mg/dL (< 200); Glucose 111 mg/dL (70-105); HDL Cholesterol 64 mg/dL (40-59); LDL Cholesterol,Calculated 74 mg/dL (< 100); Osmolality,Calculated 284 (280-300); Phosphorous 3.4 mg/dL (2.7-4.5); Potassium 3.8 mEq/L (3.5-5.1); Sodium 137 mEq/L (136-145); Triglycerides 57 mg/dL (< 150); eGFR For African Americans > 60 (> 60); eGFR For Non-African Americans > 60 (> 60)
[2021-06-20 07:41] LABS: Thyroid Stimulating Hormone 4.738 mcIU/mL (0.340-5.600)
[2021-06-20] MEDS ORDERED: Perflutren Lipid Microsphere 1.3 ML in 0.9 % Sodium Chloride 8.7 ML IVP PRN (07:49)
[2021-06-20 10:29] LABS: Estimated Average Glucose 94 mg/dl; Hemoglobin A1C 4.9 %
[2021-06-20 21:09] LABS: Bilirubin,Urine Negative (Negative); Blood,Urine Negative (Negative); Clarity,Urine Clear (Clear); Color,Urine Yellow (Yellow); Glucose,Urine (UA) Normal (Normal); Ketones,Urine Negative (Negative); Leukocyte Esterase,Urine Small (Negative); Mucus,Urine Few per lpf (None-Few); Nitrite,Urine Negative (Negative); PH,Urine 6.5 pH Units (5.0-8.0); Protein,Urine 30 mg/dL (Neg-Trace); Specific Gravity,Urine > 1.030 (1.010-1.025); Squamous Epithelial Cell,Urine Few per hpf (None-Few)
[2021-06-21] MEDS: Heparin 25,000UNIT/250ML 1/2NS 25,000 UNIT/250 ML IV.SOLN IVC SCH (07:57)
[2021-06-21] MEDS: Metoprolol XL (24 HR) Succ 50 MG TAB.ER.24H PO SCH (13:39)
[2021-06-21] MEDS: Pantoprazole 40 MG VIAL IVP SCH (18:16)
[2021-06-22] MEDS: Pantoprazole 40 MG VIAL IVP SCH (05:54)
[2021-06-22] MEDS ORDERED: Levothyroxine 25 MCG TABLET PO SCH (06:30)
[2021-06-22] MEDS ORDERED: Spironolactone 12.5 MG TABLET PO SCH (09:00)
[2021-06-22 09:02] VITALS: O2SAT 99
[2021-06-22] MEDS: Metoprolol XL (24 HR) Succ 50 MG TAB.ER.24H PO SCH (09:02)
[2021-06-22 09:37] LABS: Basophils # 0.1 K/mcL (0.0-0.2); Eosinophils # 0.1 K/mcL (0.0-0.6); Eosinophils % 2.8 %; Hematocrit 43.4 % (35.3-44.9); Hemoglobin 14.1 g/dL (11.5-15.4); Immature Granulocytes % 0.6 % (0-4); Lymphocytes # 0.7 K/mcL (0.6-4.6); Lymphocytes % 13.8 %; Mean Corpuscular HGB Conc 32.5 g/dL (31.6-35.5); Mean Corpuscular Hemoglobin 33.7 pg (28.0-33.3); Mean Corpuscular Volume 103.8 fL (83.0-100.0); Mean Platelet Volume 9.8 fL (9.4-12.4); Monocytes # 0.5 K/mcL (0.0-1.3); Monocytes % 10.4 %; Neutrophils # 3.6 K/mcL (1.6-8.9); Platelet Count 225 K/mcL (140-400); Red Blood Count 4.18 M/mcL (3.82-4.97); Red Cell Distribution Width 15.2 % (11.5-14.5); Segmented Neutrophils % 71.4 %; White Blood Count 5.1 K/mcL (4.3-11.1)
[2021-06-22] MEDS ORDERED: Apixaban 5 MG TABLET PO SCH (10:15)
[2021-06-22 12:03] VITALS: BP 126/78; PULSE 99; TEMP 97.4
== END 2021-06-22 14:15 | disposition home or self-care (01) | DRG 176 ==
LOC: 3NENU 20:56 → EMEROOARM 20:56 → SUATTDRO 06-20 02:08 → 3NENU 06-20 02:40
PROVIDERS: ADMIT Internal Medicine; ATTEND Registered Nurse

== ENCOUNTER 2021-08-21 18:48 | Observation (INO) ==
[2021-08-21] MEDS: Nitroglycerin 0.4 MG TAB.SUBL SL PRN ×2 (19:29→19:50)
[2021-08-21 19:46] LABS: Basophils % 0.4 %; Eosinophils # 0.1 K/mcL (0.0-0.6); Eosinophils % 1.4 %; Hemoglobin 15.2 g/dL (11.5-15.4); Immature Granulocytes % 0.3 % (0-4); Lymphocytes % 14.3 %; Mean Corpuscular Hemoglobin 34.2 pg (28.0-33.3); Mean Corpuscular Volume 103.6 fL (83.0-100.0); Mean Platelet Volume 10.1 fL (9.4-12.4); Monocytes # 0.6 K/mcL (0.0-1.3); Monocytes % 8.6 %; Neutrophils # 5.3 K/mcL (1.6-8.9); Platelet Count 222 K/mcL (140-400); Red Blood Count 4.44 M/mcL (3.82-4.97); Red Cell Distribution Width 14.4 % (11.5-14.5)
[2021-08-21 20:02] LABS: BUN/Creatinine Ratio 10 (6-26); Blood Urea Nitrogen 7 mg/dL (8-23); Calcium 8.9 mg/dL (8.6-10.3); Carbon Dioxide 26 mEq/L (23-29); Chloride 99 mEq/L (98-107); Glucose 99 mg/dL (70-105); Osmolality,Calculated 278 (280-300); Potassium 3.5 mEq/L (3.5-5.1); Sodium 135 mEq/L (136-145); Troponin I < 0.03 ng/mL (< 0.04); eGFR For African Americans > 60 (> 60); eGFR For Non-African Americans > 60 (> 60)
[2021-08-21] MEDS ORDERED: Ondansetron ODT 4 MG TAB.RAPDIS SL PRN (21:19)
[2021-08-21] MEDS ORDERED: Melatonin 3 MG TABLET PO PRN (21:19)
[2021-08-21] MEDS ORDERED: Naloxone 0.4 MG/ML INJ IVP PRN (21:19)
[2021-08-22 04:46] LABS: Basophils % 0.5 %; Eosinophils # 0.1 K/mcL (0.0-0.6); Eosinophils % 1.6 %; Hematocrit 44.5 % (35.3-44.9); Hemoglobin 14.7 g/dL (11.5-15.4); Immature Granulocytes % 0.2 % (0-4); Lymphocytes # 0.8 K/mcL (0.6-4.6); Lymphocytes % 14.9 %; Mean Corpuscular Hemoglobin 34.5 pg (28.0-33.3); Mean Corpuscular Volume 104.5 fL (83.0-100.0); Mean Platelet Volume 10.1 fL (9.4-12.4); Monocytes # 0.6 K/mcL (0.0-1.3); Monocytes % 10.8 %; Platelet Count 199 K/mcL (140-400); Red Blood Count 4.26 M/mcL (3.82-4.97); Red Cell Distribution Width 14.3 % (11.5-14.5); White Blood Count 5.6 K/mcL (4.3-11.1)
[2021-08-22 05:26] LABS: Alanine Aminotransferase 12 Units/L (7-52); Albumin 3.1 g/dL (3.5-5.7); Albumin/Globulin Ratio 1.3 (1.1-2.2); Alkaline Phosphatase 106 Units/L (34-104); Aspartate Amino Transferase 20 Units/L (13-39); BUN/Creatinine Ratio 9 (6-26); Bilirubin,Total 0.8 mg/dL (0.3-1.0); Blood Urea Nitrogen 7 mg/dL (8-23); Calcium 8.8 mg/dL (8.6-10.3); Carbon Dioxide 31 mEq/L (23-29); Chloride 100 mEq/L (98-107); Globulin 2.4 g/dL (2.4-3.5); Glucose 94 mg/dL (70-105); Magnesium 1.8 mg/dL (1.6-2.6); Osmolality,Calculated 282 (280-300); Phosphorous 3.4 mg/dL (2.7-4.5); Potassium 3.8 mEq/L (3.5-5.1); Sodium 137 mEq/L (136-145); Total Protein 5.5 g/dL (6.4-8.9); Troponin I 0.35 ng/mL (< 0.04); eGFR For African Americans > 60 (> 60); eGFR For Non-African Americans > 60 (> 60)
[2021-08-22] MEDS ORDERED: *HR* Heparin 5,000 UNIT/ML VIAL IVP ONE (05:38)
[2021-08-22] MEDS ORDERED: *HR* Heparin 5,000 UNIT/ML VIAL IVP PRN ×2 (05:38)
[2021-08-22] MEDS ORDERED: Heparin 25,000UNIT/250ML 1/2NS 25,000 UNIT/250 ML IV.SOLN IVC SCH (05:45)
[2021-08-22] MEDS: Levothyroxine 25 MCG TABLET PO SCH (06:12)
[2021-08-22 06:22] LABS: Heparin anti-factor XA UFH < 0.04 IU/mL (0.30-0.70); Prothrombin Time 11.5 Seconds (9.4-12.1)
[2021-08-22 06:24] LABS: Activated Partial Thrombo Time 29.1 Seconds (26.0-36.0)
[2021-08-22] MEDS: Heparin 25,000UNIT/250ML 1/2NS 25,000 UNIT/250 ML IV.SOLN IVC SCH (06:36)
[2021-08-22] MEDS: Spironolactone 12.5 MG TABLET PO SCH (08:05)
[2021-08-22] MEDS: Aspirin 81 MG TAB.CHEW PO SCH (08:05)
[2021-08-22] MEDS ORDERED: Apixaban 5 MG TABLET PO SCH (09:00)
[2021-08-22] MEDS ORDERED: Perflutren Lipid Microsphere 1.3 ML in 0.9 % Sodium Chloride 8.7 ML IVP PRN (09:12)
[2021-08-22] MEDS ORDERED: NON-FORMULARY MEDICATION 1 EACH EACH (Losartan Potassium 100 MG Tablet) PO SCH (09:15)
[2021-08-22] MEDS ORDERED: Furosemide 40 MG/4 ML VIAL IVP ONE (09:51)
[2021-08-22] MEDS: Metoprolol XL (24 HR) Succ 25 MG TAB.ER.24H PO SCH ×2 (12:53→20:29)
[2021-08-23] MEDS: Heparin 25,000UNIT/250ML 1/2NS 25,000 UNIT/250 ML IV.SOLN IVC SCH (02:21)
[2021-08-23] MEDS: Levothyroxine 25 MCG TABLET PO SCH (05:18)
[2021-08-23 06:02] LABS: Basophils # 0.1 K/mcL (0.0-0.2); Basophils % 1.1 %; Eosinophils # 0.2 K/mcL (0.0-0.6); Eosinophils % 2.8 %; Hematocrit 38.4 % (35.3-44.9); Immature Granulocytes % 0.6 % (0-4); Lymphocytes # 1.1 K/mcL (0.6-4.6); Lymphocytes % 19.5 %; Mean Corpuscular HGB Conc 33.3 g/dL (31.6-35.5); Mean Corpuscular Hemoglobin 34.8 pg (28.0-33.3); Mean Corpuscular Volume 104.3 fL (83.0-100.0); Mean Platelet Volume 10.2 fL (9.4-12.4); Monocytes # 0.6 K/mcL (0.0-1.3); Monocytes % 11.2 %; Neutrophils # 3.5 K/mcL (1.6-8.9); Platelet Count 184 K/mcL (140-400); Red Blood Count 3.68 M/mcL (3.82-4.97); Red Cell Distribution Width 14.4 % (11.5-14.5); Segmented Neutrophils % 64.8 %; White Blood Count 5.4 K/mcL (4.3-11.1)
[2021-08-23 06:03] LABS: Hemoglobin 12.8 g/dL (11.5-15.4)
[2021-08-23 06:31] LABS: Alanine Aminotransferase 11 Units/L (7-52); Albumin 2.7 g/dL (3.5-5.7); Albumin/Globulin Ratio 1.4 (1.1-2.2); Alkaline Phosphatase 86 Units/L (34-104); Aspartate Amino Transferase 25 Units/L (13-39); BUN/Creatinine Ratio 13 (6-26); Bilirubin,Total 0.9 mg/dL (0.3-1.0); Blood Urea Nitrogen 11 mg/dL (8-23); Calcium 8.2 mg/dL (8.6-10.3); Carbon Dioxide 32 mEq/L (23-29); Chloride 99 mEq/L (98-107); Glucose 101 mg/dL (70-105); Osmolality,Calculated 282 (280-300); Potassium 3.7 mEq/L (3.5-5.1); Sodium 136 mEq/L (136-145); Total Protein 4.7 g/dL (6.4-8.9); eGFR For African Americans > 60 (> 60); eGFR For Non-African Americans > 60 (> 60)
[2021-08-23] MEDS: Aspirin 81 MG TAB.CHEW PO SCH (08:34)
[2021-08-23] MEDS: Metoprolol XL (24 HR) Succ 25 MG TAB.ER.24H PO SCH (08:34)
[2021-08-23] MEDS: Spironolactone 12.5 MG TABLET PO SCH (08:35)
[2021-08-23] MEDS ORDERED: amLODIPine 5 MG TABLET PO SCH (09:00)
[2021-08-23] MEDS ORDERED: 0.9 % Sodium Chloride 2,000 ML ONE (09:12)
[2021-08-23] MEDS ORDERED: Heparin 1,000 UNITS/500 mL 500 ML ONE (09:12)
[2021-08-23] MEDS ORDERED: *HR* FentaNYL (PF) 100 MCG/2 ML VIAL ONE (09:12)
[2021-08-23] MEDS ORDERED: *HR* Midazolam HCl 2 MG/2 ML VIAL ONE (09:12)
[2021-08-23] MEDS ORDERED: *HR* Heparin 10,000 UNIT/10 ML VIAL ONE (09:12)
[2021-08-23] MEDS ORDERED: Iopamidol - 370 200 ML INFUS..BTL ONE (09:13)
[2021-08-23] MEDS ORDERED: Nitroglycerin 1,000 MCG/5 ML VIAL IV ONE (09:13)
[2021-08-23] MEDS ORDERED: Apixaban 5 MG TABLET PO SCH (11:30)
[2021-08-23 15:01] LABS: INR 1.2; Prothrombin Time 13.2 Seconds (9.4-12.1)
[2021-08-23 15:14] VITALS: BP 99/64; PULSE 70; TEMP 97.3; O2SAT 96
[2021-08-23] MEDS ORDERED: *HR* Enoxaparin 80 MG/0.8 ML SYRINGE SQ SCH (18:00)
== END 2021-08-23 18:05 | disposition home or self-care (01) ==
LOC: 3BNU 18:48 → EMEROOARM 18:48 → SUATTDRO 21:15 → 3BNU 21:41
PROVIDERS: ADMIT Internal Medicine; ATTEND Nurse Practitioner

== ENCOUNTER 2021-09-07 18:51 | Inpatient (IN) ==
[2021-09-07 19:51] LABS: Basophils % 0.2 %; Hematocrit 46.3 % (35.3-44.9); Hemoglobin 15.7 g/dL (11.5-15.4); Lymphocytes # 0.4 K/mcL (0.6-4.6); Mean Corpuscular HGB Conc 33.9 g/dL (31.6-35.5); Mean Corpuscular Hemoglobin 34.6 pg (28.0-33.3); Mean Platelet Volume 9.8 fL (9.4-12.4); Monocytes % 4.6 %; Neutrophils # 19.8 K/mcL (1.6-8.9); Platelet Count 273 K/mcL (140-400); Red Blood Count 4.54 M/mcL (3.82-4.97); Segmented Neutrophils % 92.2 %; White Blood Count 21.5 K/mcL (4.3-11.1)
[2021-09-07] MEDS ORDERED: Iopamidol - 370 500 ML MLS IVP ONE ×2 (19:55→19:56)
[2021-09-07] MEDS ORDERED: 0.9 % Sodium Chloride 1,000 ML IVC ONE (19:58)
[2021-09-07] MEDS ORDERED: *HR* FentaNYL (PF) 100 MCG/2 ML VIAL IVP STA (19:58)
[2021-09-07 20:18] LABS: INR 1.2; Prothrombin Time 13.8 Seconds (9.4-12.1)
[2021-09-07 20:29] LABS: BUN/Creatinine Ratio 7 (6-26); Blood Urea Nitrogen 6 mg/dL (8-23); Calcium 8.6 mg/dL (8.6-10.3); Carbon Dioxide 21 mEq/L (23-29); Chloride 100 mEq/L (98-107); Glucose 103 mg/dL (70-105); Osmolality,Calculated 280 (280-300); Potassium 4.1 mEq/L (3.5-5.1); Sodium 136 mEq/L (136-145); Thyroid Stimulating Hormone 3.817 mcIU/mL (0.340-5.600); Troponin I < 0.03 ng/mL (< 0.04); eGFR For African Americans > 60 (> 60); eGFR For Non-African Americans > 60 (> 60)
[2021-09-07 20:30] LABS: Amorphous Sediment,Urine Few per hpf (None-Few); Bacteria,Urine Few per hpf (None-Few); Bilirubin,Urine Negative (Negative); Blood,Urine Negative (Negative); Clarity,Urine Ex.Turbid (Clear); Color,Urine Yellow (Yellow); Glucose,Urine (UA) Normal (Normal); Hyaline Casts,Urine Moderate per lpf (None Seen); Ketones,Urine Trace mg/dL (Negative); Leukocyte Esterase,Urine Negative (Negative); Mucus,Urine Moderate per lpf (None-Few); Nitrite,Urine Negative (Negative); PH,Urine 5.5 pH Units (5.0-8.0); Protein,Urine 30 mg/dL (Neg-Trace); RBC,Urine 0-3 per hpf (0-3); Specific Gravity,Urine 1.021 (1.010-1.025); Squamous Epithelial Cell,Urine Few per hpf (None-Few); Urobilinogen,Urine Normal (Normal); WBC,Urine 0-3 per hpf (0-3)
[2021-09-07] MEDS ORDERED: *HR* Metoprolol 5 MG/5 ML VIAL IVP ONE (21:23)
[2021-09-07] MEDS ORDERED: Cefepime HCl 2,000 MG in 0.9 % Sodium Chloride 10 ML IVP ONE (21:57)
[2021-09-07] MEDS ORDERED: Vancomycin 1,250 MG/262.5 ML IV.SOLN IVPB ONE (22:00)
[2021-09-07] MEDS ORDERED: MetroNIDAZOLE 500 MG/100 ML 500 MG/100 ML BAG IVPB ONE (23:04)
[2021-09-07] MEDS ORDERED: Tdap (Boostrix) Vaccine 0.5 ML SYRINGE IM ONE (23:08)
[2021-09-08] MEDS ORDERED: Naloxone 0.4 MG/ML INJ IVP PRN (03:15)
[2021-09-08] MEDS ORDERED: Ondansetron 4 MG/2 ML VIAL IVP PRN (03:15)
[2021-09-08] MEDS ORDERED: Melatonin 3 MG TABLET PO PRN (03:15)
[2021-09-08] MEDS ORDERED: *HR* Heparin 5,000 UNIT/ML VIAL IVP PRN ×2 (04:52)
[2021-09-08] MEDS ORDERED: *HR* Heparin 5,000 UNIT/ML VIAL IVP ONE (04:52)
[2021-09-08] MEDS: 0.9 % Sodium Chloride 1,000 ML IVC SCH ×2 (06:08→18:29)
[2021-09-08] MEDS ORDERED: Piperacillin/Tazobactam 3.375 GM in 0.9 % Sodium Chloride Mini Bag 100 ML IVPB SCH (08:00)
[2021-09-08 10:00] LABS: Basophils % 0.2 %; Eosinophils % 0.3 %; Hematocrit 42.1 % (35.3-44.9); Immature Granulocytes % 0.5 % (0-4); Lymphocytes # 0.7 K/mcL (0.6-4.6); Lymphocytes % 4.6 %; Mean Corpuscular HGB Conc 32.5 g/dL (31.6-35.5); Mean Corpuscular Volume 104.5 fL (83.0-100.0); Mean Platelet Volume 9.4 fL (9.4-12.4); Monocytes # 0.7 K/mcL (0.0-1.3); Monocytes % 4.6 %; Neutrophils # 13.2 K/mcL (1.6-8.9); Platelet Count 250 K/mcL (140-400); Red Blood Count 4.03 M/mcL (3.82-4.97); Red Cell Distribution Width 14.2 % (11.5-14.5); Segmented Neutrophils % 89.8 %; White Blood Count 14.7 K/mcL (4.3-11.1)
[2021-09-08 10:04] LABS: Hemoglobin 13.7 g/dL (11.5-15.4)
[2021-09-08 10:07] LABS: INR 1.3; Prothrombin Time 14.1 Seconds (9.4-12.1)
[2021-09-08 10:22] LABS: Alanine Aminotransferase 9 Units/L (7-52); Albumin 2.8 g/dL (3.5-5.7); Albumin/Globulin Ratio 1.1 (1.1-2.2); Alkaline Phosphatase 78 Units/L (34-104); Aspartate Amino Transferase 18 Units/L (13-39); BUN/Creatinine Ratio 14 (6-26); Bilirubin,Total 0.9 mg/dL (0.3-1.0); Blood Urea Nitrogen 11 mg/dL (8-23); Calcium 7.8 mg/dL (8.6-10.3); Carbon Dioxide 22 mEq/L (23-29); Chloride 105 mEq/L (98-107); Globulin 2.5 g/dL (2.4-3.5); Glucose 114 mg/dL (70-105); Magnesium 1.5 mg/dL (1.6-2.6); Osmolality,Calculated 282 (280-300); Phosphorous 2.9 mg/dL (2.7-4.5); Potassium 3.9 mEq/L (3.5-5.1); Sodium 136 mEq/L (136-145); Total Protein 5.3 g/dL (6.4-8.9); eGFR For African Americans > 60 (> 60); eGFR For Non-African Americans > 60 (> 60)
[2021-09-08] MEDS: Heparin 25,000UNIT/250ML 1/2NS 25,000 UNIT/250 ML IV.SOLN IVC SCH (14:29)
[2021-09-08] MEDS ORDERED: *HR* Warfarin 2.5 MG TABLET PO ONE (18:00)
[2021-09-08] MEDS ORDERED: Warfarin perPT PO PRN (18:00)
[2021-09-08] MEDS: Thiamine (B-1) 100 MG, Folic Acid 1 MG, MVI, adult with vitamin K 10 ML in 0.9 % Sodi... IVPB SCH (19:00)
[2021-09-08] MEDS: Piperacillin/Tazobactam 3.375 GM in 0.9 % Sodium Chloride Mini Bag 100 ML IVPB SCH (20:34)
[2021-09-08] MEDS: Metoprolol XL (24 HR) Succ 50 MG TAB.ER.24H PO SCH (20:36)
[2021-09-08] MEDS: Vancomycin 1,250 MG/262.5 ML IV.SOLN IVPB SCH (23:30)
[2021-09-09] MEDS: Piperacillin/Tazobactam 3.375 GM in 0.9 % Sodium Chloride Mini Bag 100 ML IVPB SCH ×3 (02:47→20:26)
[2021-09-09 03:08] LABS: Basophils # 0.1 K/mcL (0.0-0.2); Basophils % 0.5 %; Eosinophils # 0.2 K/mcL (0.0-0.6); Eosinophils % 1.7 %; Hematocrit 39.4 % (35.3-44.9); Immature Granulocytes % 0.6 % (0-4); Lymphocytes # 0.8 K/mcL (0.6-4.6); Lymphocytes % 8.4 %; Mean Corpuscular Hemoglobin 34.5 pg (28.0-33.3); Mean Corpuscular Volume 104.5 fL (83.0-100.0); Mean Platelet Volume 9.6 fL (9.4-12.4); Monocytes # 0.7 K/mcL (0.0-1.3); Neutrophils # 7.6 K/mcL (1.6-8.9); Platelet Count 239 K/mcL (140-400); Red Blood Count 3.77 M/mcL (3.82-4.97); Red Cell Distribution Width 14.4 % (11.5-14.5); Segmented Neutrophils % 81.8 %; White Blood Count 9.3 K/mcL (4.3-11.1)
[2021-09-09 03:20] LABS: Heparin anti-factor XA UFH 0.98 IU/mL (0.30-0.70); INR 1.4; Prothrombin Time 15.2 Seconds (9.4-12.1)
[2021-09-09 03:27] LABS: BUN/Creatinine Ratio 16 (6-26); Blood Urea Nitrogen 13 mg/dL (8-23); Calcium 7.6 mg/dL (8.6-10.3); Carbon Dioxide 26 mEq/L (23-29); Chloride 106 mEq/L (98-107); Glucose 107 mg/dL (70-105); Osmolality,Calculated 285 (280-300); Potassium 3.6 mEq/L (3.5-5.1); Sodium 137 mEq/L (136-145); eGFR For African Americans > 60 (> 60); eGFR For Non-African Americans > 60 (> 60)
[2021-09-09] MEDS: Heparin 25,000UNIT/250ML 1/2NS 25,000 UNIT/250 ML IV.SOLN IVC SCH (03:34)
[2021-09-09] MEDS: Aspirin 325 MG TABLET PO SCH (08:43)
[2021-09-09] MEDS: Lactobacillus 1 EACH CAP.SPRINK PO SCH (08:43)
[2021-09-09] MEDS: Spironolactone 12.5 MG TABLET PO SCH (08:43)
[2021-09-09] MEDS: Cholecalciferol (D-3) 1,000 UNIT (25MCG) TABLET PO SCH (08:43)
[2021-09-09] MEDS: amLODIPine 5 MG TABLET PO SCH (08:44)
[2021-09-09] MEDS: Cyanocobalamin (B-12) 1,000 MCG TABLET PO SCH (08:44)
[2021-09-09] MEDS: Metoprolol XL (24 HR) Succ 50 MG TAB.ER.24H PO SCH ×2 (08:45→20:25)
[2021-09-09] MEDS: Apixaban 5 MG TABLET PO SCH ×2 (09:04→20:25)
[2021-09-09] MEDS: Thiamine (B-1) 100 MG, Folic Acid 1 MG, MVI, adult with vitamin K 10 ML in 0.9 % Sodi... IVPB SCH (17:24)
[2021-09-09] MEDS: Levothyroxine 25 MCG TABLET PO SCH (20:11)
[2021-09-09] MEDS ORDERED: *HR* LORazepam 2 MG/ML VIAL IVP ONE (22:09)
[2021-09-09] MEDS ORDERED: *HR* LORazepam 2 MG/ML VIAL IVP PRN ×3 (22:22)
[2021-09-10] MEDS: Vancomycin 1,250 MG/262.5 ML IV.SOLN IVPB SCH ×2 (01:46→23:29)
[2021-09-10 03:08] LABS: INR 1.6; Prothrombin Time 18.1 Seconds (9.4-12.1)
[2021-09-10] MEDS: Piperacillin/Tazobactam 3.375 GM in 0.9 % Sodium Chloride Mini Bag 100 ML IVPB SCH ×3 (03:16→21:19)
[2021-09-10] MEDS: Levothyroxine 25 MCG TABLET PO SCH (06:20)
[2021-09-10] MEDS: Apixaban 5 MG TABLET PO SCH ×2 (07:34→21:18)
[2021-09-10] MEDS: Lactobacillus 1 EACH CAP.SPRINK PO SCH (07:34)
[2021-09-10] MEDS: Spironolactone 12.5 MG TABLET PO SCH (07:34)
[2021-09-10] MEDS: Cyanocobalamin (B-12) 1,000 MCG TABLET PO SCH (07:34)
[2021-09-10] MEDS: amLODIPine 5 MG TABLET PO SCH (07:34)
[2021-09-10] MEDS: Aspirin 325 MG TABLET PO SCH (07:36)
[2021-09-10] MEDS: Cholecalciferol (D-3) 1,000 UNIT (25MCG) TABLET PO SCH (07:36)
[2021-09-10] MEDS: Metoprolol XL (24 HR) Succ 50 MG TAB.ER.24H PO SCH ×2 (07:36→21:19)
[2021-09-10] MEDS: Thiamine (B-1) 100 MG, Folic Acid 1 MG, MVI, adult with vitamin K 10 ML in 0.9 % Sodi... IVPB SCH (17:30)
[2021-09-11] MEDS: Piperacillin/Tazobactam 3.375 GM in 0.9 % Sodium Chloride Mini Bag 100 ML IVPB SCH (03:48)
[2021-09-11 04:22] LABS: INR 1.7; Prothrombin Time 18.4 Seconds (9.4-12.1)
[2021-09-11] MEDS: Levothyroxine 25 MCG TABLET PO SCH (05:30)
[2021-09-11] MEDS: Spironolactone 12.5 MG TABLET PO SCH (07:32)
[2021-09-11] MEDS: Cholecalciferol (D-3) 1,000 UNIT (25MCG) TABLET PO SCH (07:32)
[2021-09-11] MEDS: Aspirin 325 MG TABLET PO SCH (07:33)
[2021-09-11] MEDS: Apixaban 5 MG TABLET PO SCH (07:33)
[2021-09-11] MEDS: amLODIPine 5 MG TABLET PO SCH (07:34)
[2021-09-11] MEDS: Cyanocobalamin (B-12) 1,000 MCG TABLET PO SCH (07:34)
[2021-09-11] MEDS: Metoprolol XL (24 HR) Succ 50 MG TAB.ER.24H PO SCH (07:34)
[2021-09-11] MEDS: Lactobacillus 1 EACH CAP.SPRINK PO SCH (07:34)
[2021-09-11 09:53] LABS: Adenovirus Not Detected (Not Detect); Bordetella Pertussis Not Detected (Not Detect); Chlamydophila pneumoniae Not Detected (Not Detect); Coronavirus 229E Not Detected (Not Detect); Coronavirus HKU1 Not Detected (Not Detect); Coronavirus NL63 Not Detected (Not Detect); Coronavirus OC43 Not Detected (Not Detect); Human Metapneumovirus Not Detected (Not Detect); Human Rhinovirus/Enterovirus Not Detected (Not Detect); Influenza A Subtype 2009 H1 Not Detected (Not Detect); Influenza B Not Detected (Not Detect); Mycoplasma pneumoniae Not Detected (Not Detect); Parainfluenza Virus 1 Not Detected (Not Detect); Parainfluenza Virus 2 Not Detected (Not Detect); Parainfluenza Virus 3 Not Detected (Not Detect); Parainfluenza Virus 4 Not Detected (Not Detect); Respiratory Syncytial Virus Not Detected (Not Detect); SARS-CoV-2 Not Detected (Not Detect)
[2021-09-11 10:57] VITALS: BP 114/75; PULSE 75; TEMP 98.1; O2SAT 97
== END 2021-09-11 10:55 | DRG 872 ==
LOC: EMEROOARM 18:51 → 3ANU 18:51 → SUATTDRO 09-08 00:02 → 3ANU 09-08 03:05
PROVIDERS: ADMIT Student in an Organized Health Care Education/Training Program; ATTEND Internal Medicine

== ENCOUNTER 2021-11-04 10:14 | Inpatient (IN) ==
[2021-11-04] MEDS: DilTIAZem 50 MG/50 ML IV.SOLN IVC SCH ×2 (11:55→18:27)
[2021-11-04 12:35] LABS: Basophils % 0.3 %; Eosinophils % 0.1 %; Hematocrit 47.2 % (35.3-44.9); Immature Granulocytes % 0.7 % (0-4); Lymphocytes # 0.6 K/mcL (0.6-4.6); Lymphocytes % 5.1 %; Mean Corpuscular HGB Conc 33.9 g/dL (31.6-35.5); Mean Corpuscular Hemoglobin 34.3 pg (28.0-33.3); Mean Corpuscular Volume 101.1 fL (83.0-100.0); Mean Platelet Volume 9.8 fL (9.4-12.4); Monocytes # 1.1 K/mcL (0.0-1.3); Monocytes % 9.1 %; Neutrophils # 9.9 K/mcL (1.6-8.9); Platelet Count 215 K/mcL (140-400); Red Blood Count 4.67 M/mcL (3.82-4.97); Red Cell Distribution Width 15.1 % (11.5-14.5); Segmented Neutrophils % 84.7 %; White Blood Count 11.6 K/mcL (4.3-11.1)
[2021-11-04 12:36] LABS: INR 1.2; Prothrombin Time 13.6 Seconds (9.4-12.1)
[2021-11-04 12:38] LABS: Activated Partial Thrombo Time 33.8 Seconds (26.0-36.0)
[2021-11-04 12:49] LABS: Bacteria,Urine Few per hpf (None-Few); Bilirubin,Urine Small (Negative); Blood,Urine Moderate (Negative); Clarity,Urine Ex.Turbid (Clear); Color,Urine Dark-Yellow (Yellow); Glucose,Urine (UA) Normal (Normal); Ketones,Urine 40 mg/dL (Negative); Leukocyte Esterase,Urine Large (Negative); Mucus,Urine Many per lpf (None-Few); Nitrite,Urine Positive (Negative); Protein,Urine 100 mg/dL (Neg-Trace); Renal Epithelial Cells,Urine Few per hpf (None-Few); Specific Gravity,Urine 1.027 (1.010-1.025); WBC,Urine TNTC per hpf (0-3)
[2021-11-04 13:03] LABS: Alanine Aminotransferase 12 Units/L (7-52); Albumin 3.2 g/dL (3.5-5.7); Albumin/Globulin Ratio 1.1 (1.1-2.2); Alkaline Phosphatase 160 Units/L (34-104); Aspartate Amino Transferase 28 Units/L (13-39); BUN/Creatinine Ratio 16 (6-26); Bilirubin,Total 1.3 mg/dL (0.3-1.0); Blood Urea Nitrogen 13 mg/dL (8-23); Calcium 8.6 mg/dL (8.6-10.3); Carbon Dioxide 24 mEq/L (23-29); Chloride 98 mEq/L (98-107); Glucose 100 mg/dL (70-105); Osmolality,Calculated 276 (280-300); Potassium 4.3 mEq/L (3.5-5.1); Sodium 133 mEq/L (136-145); Total Protein 6.2 g/dL (6.4-8.9); Troponin I < 0.03 ng/mL (< 0.04)
[2021-11-04] MEDS ORDERED: cefTRIAXone 1,000 MG in 0.9 % Sodium Chloride Mini Bag 100 ML IVPB ONE (13:11)
[2021-11-04] MEDS ORDERED: Naloxone 0.4 MG/ML INJ IVP PRN (13:28)
[2021-11-04 14:37] LABS: Ethanol < 10 mg/dL (Less than 10)
[2021-11-04] MEDS ORDERED: *HR* LORazepam 1 MG TABLET PO PRN ×3 (14:44)
[2021-11-04] MEDS: Metoprolol XL (24 HR) Succ 50 MG TAB.ER.24H PO SCH (16:13)
[2021-11-04] MEDS: Thiamine (B-1) 100 MG, Folic Acid 1 MG, MVI, adult with vitamin K 10 ML in 0.9 % Sodi... IVPB SCH (17:34)
[2021-11-04] MEDS: Apixaban 5 MG TABLET PO SCH (20:25)
[2021-11-05 02:59] LABS: Basophils % 0.3 %; Eosinophils # 0.1 K/mcL (0.0-0.6); Eosinophils % 0.6 %; Hematocrit 40.6 % (35.3-44.9); Immature Granulocytes % 0.7 % (0-4); Lymphocytes % 11.1 %; Mean Corpuscular HGB Conc 32.3 g/dL (31.6-35.5); Mean Corpuscular Hemoglobin 33.3 pg (28.0-33.3); Mean Corpuscular Volume 103.3 fL (83.0-100.0); Mean Platelet Volume 9.9 fL (9.4-12.4); Monocytes # 0.9 K/mcL (0.0-1.3); Monocytes % 10.4 %; Neutrophils # 6.6 K/mcL (1.6-8.9); Platelet Count 197 K/mcL (140-400); Red Blood Count 3.93 M/mcL (3.82-4.97); Segmented Neutrophils % 76.9 %; White Blood Count 8.6 K/mcL (4.3-11.1)
[2021-11-05 03:00] LABS: Hemoglobin 13.1 g/dL (11.5-15.4)
[2021-11-05] MEDS: DilTIAZem 50 MG/50 ML IV.SOLN IVC SCH (03:28)
[2021-11-05 06:10] LABS: Folate > 22.3 ng/mL (3.0-16.0); Vitamin B12 931 pg/mL (250-1100)
[2021-11-05] MEDS: Apixaban 5 MG TABLET PO SCH ×2 (07:53→20:21)
[2021-11-05] MEDS: cefTRIAXone 1,000 MG in 0.9 % Sodium Chloride 10 ML IVP SCH (07:53)
[2021-11-05] MEDS: Metoprolol XL (24 HR) Succ 50 MG TAB.ER.24H PO SCH (07:53)
[2021-11-05] MEDS ORDERED: Ibuprofen 400 MG TABLET PO ONE (08:28)
[2021-11-05] MEDS: amLODIPine 5 MG TABLET PO SCH (09:09)
[2021-11-05] MEDS: Spironolactone 12.5 MG TABLET PO SCH (09:09)
[2021-11-05] MEDS: Lactobacillus 1 EACH CAP.SPRINK PO SCH ×2 (09:09→20:21)
[2021-11-05] MEDS: Aspirin 81 MG TAB.CHEW PO SCH (09:10)
[2021-11-05] MEDS: Levothyroxine 25 MCG TABLET PO SCH (09:10)
[2021-11-05] MEDS: Thiamine (B-1) 100 MG, Folic Acid 1 MG, MVI, adult with vitamin K 10 ML in 0.9 % Sodi... IVPB SCH (18:13)
[2021-11-06] MEDS: Levothyroxine 25 MCG TABLET PO SCH (05:01)
[2021-11-06] MEDS: Apixaban 5 MG TABLET PO SCH ×2 (07:52→20:24)
[2021-11-06] MEDS: Aspirin 81 MG TAB.CHEW PO SCH (07:52)
[2021-11-06] MEDS: Spironolactone 12.5 MG TABLET PO SCH (07:52)
[2021-11-06] MEDS: amLODIPine 5 MG TABLET PO SCH (07:52)
[2021-11-06] MEDS: Lactobacillus 1 EACH CAP.SPRINK PO SCH ×2 (07:52→20:24)
[2021-11-06] MEDS: Metoprolol XL (24 HR) Succ 50 MG TAB.ER.24H PO SCH (07:52)
[2021-11-06] MEDS: DilTIAZem 50 MG/50 ML IV.SOLN IVC SCH (07:54)
[2021-11-06] MEDS: cefTRIAXone 1,000 MG in 0.9 % Sodium Chloride 10 ML IVP SCH (07:55)
[2021-11-06] MEDS: Thiamine (B-1) 100 MG, Folic Acid 1 MG, MVI, adult with vitamin K 10 ML in 0.9 % Sodi... IVPB SCH (20:23)
[2021-11-07] MEDS: Levothyroxine 25 MCG TABLET PO SCH (05:20)
[2021-11-07] MEDS: Apixaban 5 MG TABLET PO SCH ×2 (09:17→21:11)
[2021-11-07] MEDS: Aspirin 81 MG TAB.CHEW PO SCH (09:17)
[2021-11-07] MEDS: amLODIPine 5 MG TABLET PO SCH (09:18)
[2021-11-07] MEDS: Metoprolol XL (24 HR) Succ 50 MG TAB.ER.24H PO SCH (09:21)
[2021-11-07] MEDS: Lactobacillus 1 EACH CAP.SPRINK PO SCH ×2 (09:21→21:11)
[2021-11-07] MEDS: DilTIAZem CD (24hr) 120 MG CAP.ER.24H PO SCH (09:21)
[2021-11-07] MEDS: Spironolactone 12.5 MG TABLET PO SCH (09:21)
[2021-11-07] MEDS: cefTRIAXone 1,000 MG in 0.9 % Sodium Chloride 10 ML IVP SCH (09:22)
[2021-11-07] MEDS ORDERED: Menthol 1 EACH LOZENGE PO PRN (23:02)
[2021-11-08] MEDS: Levothyroxine 25 MCG TABLET PO SCH (05:18)
[2021-11-08] MEDS: Aspirin 81 MG TAB.CHEW PO SCH (09:10)
[2021-11-08] MEDS: Lactobacillus 1 EACH CAP.SPRINK PO SCH ×2 (09:10→20:28)
[2021-11-08] MEDS: cefTRIAXone 1,000 MG in 0.9 % Sodium Chloride 10 ML IVP SCH (09:10)
[2021-11-08] MEDS: Apixaban 5 MG TABLET PO SCH ×2 (09:10→20:29)
[2021-11-08] MEDS: Spironolactone 12.5 MG TABLET PO SCH (09:11)
[2021-11-08] MEDS: Metoprolol XL (24 HR) Succ 50 MG TAB.ER.24H PO SCH (09:11)
[2021-11-08] MEDS: amLODIPine 5 MG TABLET PO SCH (09:11)
[2021-11-08] MEDS: DilTIAZem CD (24hr) 120 MG CAP.ER.24H PO SCH (09:11)
[2021-11-09 05:17] LABS: BUN/Creatinine Ratio 33 (6-26); Blood Urea Nitrogen 18 mg/dL (8-23); Calcium 7.9 mg/dL (8.6-10.3); Carbon Dioxide 22 mEq/L (23-29); Chloride 102 mEq/L (98-107); Glucose 85 mg/dL (70-105); Osmolality,Calculated 273 (280-300); Potassium 4.1 mEq/L (3.5-5.1); Sodium 131 mEq/L (136-145)
[2021-11-09 05:18] LABS: Basophils % 0.3 %; Eosinophils # 0.1 K/mcL (0.0-0.6); Eosinophils % 1.2 %; Hematocrit 36.9 % (35.3-44.9); Hemoglobin 12.1 g/dL (11.5-15.4); Immature Granulocytes % 0.5 % (0-4); Lymphocytes # 0.6 K/mcL (0.6-4.6); Lymphocytes % 7.9 %; Mean Corpuscular HGB Conc 32.8 g/dL (31.6-35.5); Mean Corpuscular Hemoglobin 32.8 pg (28.0-33.3); Mean Platelet Volume 10.7 fL (9.4-12.4); Monocytes # 0.9 K/mcL (0.0-1.3); Monocytes % 11.9 %; Platelet Count 323 K/mcL (140-400); Red Blood Count 3.69 M/mcL (3.82-4.97); Red Cell Distribution Width 14.6 % (11.5-14.5); Segmented Neutrophils % 78.2 %; White Blood Count 7.6 K/mcL (4.3-11.1)
[2021-11-09] MEDS: Levothyroxine 25 MCG TABLET PO SCH (05:32)
[2021-11-09] MEDS: cefTRIAXone 1,000 MG in 0.9 % Sodium Chloride 10 ML IVP SCH (09:54)
[2021-11-09] MEDS: Aspirin 81 MG TAB.CHEW PO SCH (09:55)
[2021-11-09] MEDS: Lactobacillus 1 EACH CAP.SPRINK PO SCH (09:55)
[2021-11-09] MEDS: Metoprolol XL (24 HR) Succ 50 MG TAB.ER.24H PO SCH (09:55)
[2021-11-09] MEDS: Apixaban 5 MG TABLET PO SCH (09:56)
[2021-11-09] MEDS: DilTIAZem CD (24hr) 120 MG CAP.ER.24H PO SCH (09:56)
[2021-11-09] MEDS: Spironolactone 12.5 MG TABLET PO SCH (09:56)
[2021-11-09] MEDS: amLODIPine 5 MG TABLET PO SCH (09:56)
[2021-11-09 10:49] VITALS: BP 124/74; PULSE 97; TEMP 97.8; O2SAT 95
[2021-11-09 12:12] LABS: Influenza A PCR Negative (Negative); Influenza B PCR Negative (Negative); Resp. Syncytial Virus PCR Negative (Negative)
[2021-11-09 12:17] LABS: SARS-CoV-2 by PCR (In House) Negative (Negative)
== END 2021-11-09 16:33 | DRG 308 ==
LOC: 3BNU 10:14 → EMEROOARM 10:14 → SUATTDRO 14:54 → 3BNU 15:44
PROVIDERS: ADMIT Internal Medicine; ATTEND Registered Nurse